=== PATIENT | female | born 1980 | race Caucasian/White ===

== ENCOUNTER 2022-06-23 14:56 | Emergency (ER) | payer SELFPAY ==
--- OUTSIDE RECORDS SUMMARY | 2022-06-23 14:59 | XMS REPORT | Continuity of Care Document ---
:1980 Author Organization [facility] t Address [address] [facility] [address] [place] [address] Care Team Providers Name Role Phone KISHAN RICHARDS Attending Clinician Unavailable DONI GREEN Attending Clinician Unavailable BLAYNE DAVIS Attending Clinician Unavailable LAB90 Attending Clinician Unavailable MD LEÓN Attending Clinician Unavailable Payers Payer Name Policy Type Policy Number Effective Date Expiration Date S berhane [employer]ET[employer] MP GOLD: 9 [id number] 2022 [facility] OFF 00:00:00 STANDARD [employer] 2 [id number] 2022 [employer] 00:00:00 Problems Condition Condition Condition Status Onset Resolution Last Treating Co mments Source Name Details Category Date Date Treatment Clinician Date Primary Primary Disease Active Jemma hypertensi hypertensi 2-01 Se ybold on on 00:00: - 00 Externa l DM type 2 DM type 2 Disease Active Antonio sey with with 2- Seybold diabetic diabetic 00:00: - mixed mixed 00 Externa hyperlipid hyperlipid l emia emia Other Other Disease Active Jemma specified specified 2-01 Seyb old hypothyroi hypothyroi 00:00: - dism dism 00 Externa l Menorrhagi Menorrhagi Disease Active K elsey a with a with 2-01 Seybold regular regular 00:00: - cycle cycle 00 Externa l Allergies, Adverse Reactions, Alerts This patient has no known allergies or adverse reactions. Social History Social Habit Start Date Stop Date Quantity Comments Source History SDOH Jemma Seybo ld - Alcohol Binge External History HEMA Cameron Seybo ld - Alcohol Frequency Externa l History SDOH Jemma Rodo ld - Alcohol Std Drinks Clinical Account Liaison al Alcohol intake 2022-06-03 2022-06-03 Current drinker Dilcia Shaver - 00:00:00 00:00:00 of alcohol External (finding) Alcohol Comment 2022-05-25 2022-05-25 social Jemma taylor - 00:00:00 00:00:00 External Sex Ass[birth year] At [birth year] Jemma Mcmahon ybashia - 00:00:00 00:00:00 External Smoking Status Start Date Stop Date Source Never smoked tobacco Jemma Rod old - External Medications Ordered Filled Start Stop Current Ordering Indication Dosage Frequency Signature Comments Components Source Medication Medication Date Date Medication? Clinician (SIG) Name Name Insulin NPH Yes [id number] 20U Inject 20 Jemma Isophane & 2-10 3 units into Sey bold Regular 13:51: the skin - (NOVOLIN 57 daily Externa 70/30 SC) l Levothyroxi Yes [id number] 125ug Take 1 Jemma ne Sodium 2-10 tablet Seybold 125 MCG 00:00: (125 mcg - oral Tablet 00 total) by Ext chris mouth l daily Nitrofurant Yes [id number] 100mg Take 1 Jemma oin Monohyd 2-10 capsule Seybo ld Macro 00:00: (100 mg - (Macrobid) 00 total) by Exte rna 100 MG oral mouth 2 l Capsule times daily Ondansetron Yes [id number] 4mg Q.[id number] Take 1 Jemma (ZOFRAN) 4 2-10 [id number] tablet (4 Seybold MG oral 00:00: 3D mg total) - TABLET 00 by mouth Externa DISPERSIBLE every 8 l hours as needed for nausea Vitamin D, Yes [id number] 07021S Take 1 Jemma Ergocalcife 2-10 capsule Seybo ld rol, 1.25 00:00: (50,000 - MG (58604 00 units Externa UT) oral total) by l Capsule mouth once a week hydroCHLORO Yes [id number] 12.5mg Take 1 Jemma thiazide 2-10 capsule Seybold 12.5 MG 00:00: (12.5 mg - oral 00 total) by Externa Capsule mouth l daily Insulin NPH 2022- Yes [id number] 20U Inject 20 Jemma Isophane & 2-01 3 units into Sey bold Regular 08:43: the skin - (NOVOLIN 00 daily Externa 70/30 SC) l Losartan 2022-0 Yes [id number] 25mg Take 1 Antonio sey Potassium 2-01 tablet (25 Seyb old 25 MG oral 00:00: mg total) - Tablet 00 by mouth Externa daily l Semaglutide 2022- Yes [id number] .25mg Inject Jemma (0.25 or 2-01 3 0.25 mg Seybold 0.5 00:00: into the - mg/dose) 2 00 skin once Exte rna mg/1.5 mL a week l SQ Solution Pen-Injecto r Norethin-Et 2022-0 Yes [id number] 1{tbl} Take 1 Jemma h Estrad-Fe 2-01 tablet by Sey bold Biphas (Lo 00:00: mouth - Loestrin 00 daily Externa Fe) 1 MG-10 l MCG / 10 MCG oral Tablet Metformin 2022-0 Yes [id number] 500mg Take 1 Jemma HCl 500 MG 2-01 3 tablet Seybold oral Tablet 00:00: (500 mg - 00 total) by Externa mouth l daily (with breakfast) Losartan 2022-0 Yes [id number] 25mg Take 1 Antonio sey Potassium 2-01 tablet (25 Seyb old 25 MG oral 00:00: mg total) - Tablet 00 by mouth Externa daily l Norethin-Et 2022-0 Yes [id number] 1{tbl} Take 1 Jemma h Estrad-Fe 2-01 tablet by SeSyapse bold Biphas (Lo 00:00: mouth - Loestrin 00 daily Externa Fe) 1 MG-10 l MCG / 10 MCG oral Tablet Metformin 2022-0 Yes [id number] 500mg Take 1 Jemma HCl 500 MG 2-01 3 tablet Seybold oral Tablet 00:00: (500 mg - 00 total) by Externa mouth l daily (with breakfast) Trulicity 2022-0 Yes [id number] .75mg Inject Jemma 0.75 2-01 3 0.75 mg Seybold MG/0.5ML 00:00: into the - subcutaneou 00 skin once Ext chris s Solution a week l Pen-injecto r Immunizations Ordered Immunization Filled Immunization Date Status Commen ts Source Name Name Influenza Virus 2021-11-22 Completed Jemma Se ybold Vaccine, age 6 00:00:00 - External months and up Influenza Virus 2021-11-22 Completed Jemma Se ybold Vaccine, age 6 00:00:00 - External months and up COVID-19 VACCINE 2021-04-07 Completed Jemma S eybold PFIZER 12+ ([place] 00:00:00 - Clinical Account Liaison al cap) Covid-19 Vaccine 2021-04-07 Completed Jemma S eybold (Pfizer), Mrna-lnp, 00:00:00 - Ext ernal Cosme Protein, Pf, 30mcg/0.3ml,IM COVID-19 VACCINE 2021-04-07 Completed Jemma S eybold PFIZER 12+ ([place] 00:00:00 - Clinical Account Liaison al cap) Covid-19 Vaccine 2021-04-07 Completed Jemma S eybold (Pfizer), Mrna-lnp, 00:00:00 - Ext ernal Cosme Protein, Pf, 30mcg/0.3ml,IM Influenza Virus 2021-01-22 Completed Jemma Se ybold Vaccine, No Preserv, 00:00:00 - Ex ternal age 6 months and up Influenza Virus 2021-01-22 Completed Jemma Se ybold Vaccine, No Preserv, 00:00:00 - Ex ternal age 6 months and up COVID-19 VACCINE 2020-07-31 Completed Jemma S eybold PFIZER 12+ ([place] 00:00:00 - Clinical Account Liaison al cap) Covid-19 Vaccine 2020-07-31 Completed Jemma S eybold (Pfizer), Mrna-lnp, 00:00:00 - Ext ernal Cosme Protein, Pf, 30mcg/0.3ml,IM COVID-19 VACCINE 2020-07-31 Completed Jemma S eybold PFIZER 12+ ([place] 00:00:00 - Clinical Account Liaison al cap) Covid-19 Vaccine 2020-07-31 Completed Jemma S eybold (Pfizer), Mrna-lnp, 00:00:00 - Ext ernal Cosme Protein, Pf, 30mcg/0.3ml,IM COVID-19 VACCINE 2020-07-09 Completed Jemma Madai pradodary PFIZER 12+ ([place] 00:00:00 - Clinical Account Liaison al cap) Covid-19 Vaccine 2020-07-09 Completed Jemma Madai pradobold (uMix[employer]TV), Mrna-lnp, 00:00:00 - Ext ernal Cosme Protein, Pf, 30mcg/0.3ml,IM COVID-19 VACCINE 2020-07-09 Completed Jemma Madai pradobold PFIZER 12+ ([place] 00:00:00 - Clinical Account Liaison al cap) Covid-19 Vaccine 2020-07-09 Completed Jemma Madai pradobold (uMix[employer]TV), Mrna-lnp, 00:00:00 - Ext ernal Cosme Protein, Pf, 30mcg/0.3ml,IM Tdap- (Boostrix, 2017-02-20 Completed Jemma berger Adacel) 00:00:00 - External Tdap- (Boostrix, 2017-02-20 Completed Jemma berger Adacel) 00:00:00 - External Vital Signs Vital Name Observation Time Observation Value Comments Source Systolic blood 2022-06-03 19:50:00 142 mm[Hg] Jemma Mcmahonybold - pressure External Diastolic blood 2022-06-03 19:50:00 70 mm[Hg] Dilcia ramirez Seybold - pressure External Heart rate 2022-06-03 19:50:00 105 /min Jemma S ab - External Body temperature 2022-06-03 19:50:00 36 Joselyn Dulce Maria ey Seybold - External Respiratory rate 2022-06-03 19:50:00 14 /min Dulce Maria ey Seybold - External Body height 2022-06-03 19:50:00 165.1 cm Jemma S ab - External Body weight 2022-06-03 19:50:00 80.74 kg Jemma Maadi ab - External BMI 2022-06-03 19:50:00 29.62 kg/m2 Jemmabrock pradodary - External Systolic blood 2022-05-25 13:51:00 128 mm[Hg] Jemma Mcmahonybold - pressure External Diastolic blood 2022-05-25 13:51:00 92 mm[Hg] Dilcia ramirez Seybold - pressure External Heart rate 2022-05-25 13:51:00 98 /min Jemma pradobowalt - External Body temperature 2022-05-25 13:51:00 35.56 Joselyn Dulce Maria Shaver - External Respiratory rate 2022-05-25 13:51:00 14 /min Dulce Maria Shaver - External Body height 2022-05-25 13:51:00 165.1 cm Jemma pradobowalt - External Body weight 2022-05-25 13:51:00 81.194 kg Jemma pradobowalt - External BMI 2022-05-25 13:51:00 29.79 kg/m2 Jemma pradobowalt - External Procedures This patient has no known procedures. Encounters Start End Encounter Admission Attending Care Care Encounter Source Date/Time Date/Time Type Type Clinicians Facility Department ID 2022-09-16 2022-09-16 Outpatient JEMMA RICHARDS [id number] Jemma 09:00:00 09:00:00 KISHAN Seybol d 2022-08-01 2022-08-01 Outpatient JEMMA GREEN [id number] Jemma 08:30:00 08:30:00 DONI Seybol d 2022-06-27 2022-06-27 Outpatient JEMMA RICHARDS [id number] Jemma 10:00:00 10:00:00 KISHAN Seybol d 2022-06-23 2022-06-23 Outpatient JEMMA RICHARDS [id number] Jemma 00:00:00 00:00:00 KISHAN Seybol d 2022-06-22 2022-06-22 Outpatient JEMMA RICHARDS [id number] Jemma 08:30:00 08:30:00 KISHAN Seybol d 2022-06-13 2022-06-13 Outpatient JEMMA DAVIS [id number] Jemma 00:00:00 00:00:00 BLAYNE Seybol d 2022-06-10 2022-06-10 Outpatient JEMMA RICHARDS [id number] Jemma 00:00:00 00:00:00 KISHAN Seybol d 2022-06-08 2022-06-08 Outpatient JEMMA RICHARDS [id number] Jemma 00:00:00 00:00:00 KISHAN Seybol d 2022-06-04 2022-06-04 Outpatient MAURICE JEMMA CAMERON [id number] Jemma 00:00:00 00:00:00 KISHAN Seybol d 2022-06-03 2022-06-03 Outpatient MAURICE JEMMA CAMERON [id number] Jemma 14:00:00 14:00:00 KISHAN Seybol d 2022-06-03 2022-06-03 Outpatient LUISL JEMMA CAMERON [id number] Jemma 00:00:00 00:00:00 KISHAN Seybol d 2022-05-26 2022-05-26 Outpatient PREZAS JEMMA CAMERON [id number] Jemma 00:00:00 00:00:00 BLAYNE Seybol d 2022-05-26 2022-05-26 Outpatient MAURICE JEMMA CAMERON [id number] Jemma 00:00:00 00:00:00 KISHAN Seybol d 2022-05-25 2022-05-25 Outpatient LAB90 JEMMA CAMERON [id number] Jemma 09:10:00 09:10:00 Seybol d 2022-05-25 2022-05-25 Outpatient MAURICE JEMMA CAMERON [id number] Jemma 08:00:00 08:00:00 KISHAN Seybol d 2022-05-25 2022-05-25 Outpatient MAURICE JMEMA CAMERON [id number] Jemma 00:00:00 00:00:00 KISHAN Seybol d 2022-05-23 2022-05-23 Outpatient MYKELSEYONL JEMMA CAMERON [id number] Jemma 00:00:00 00:00:00 MD TORO Seybol d 2018-11-03 2018-11-03 Emergency E [facility]FB [facility]FB [id number] MHFB 03:10:00 03:10:00 2018-10-24 2018-10-24 Emergency E [facility]FB [facility]FB [id number] [facility]FB 20:37:00 20:37:00 Results This patient has no known results.
[2022-06-23] MEDS ORDERED: KETOROLAC 30 MG/ML INJ ONE (15:42)
[2022-06-23] MEDS ORDERED: ONDANSETRON 4 MG/2 ML VIAL ONE (15:42)
[2022-06-23] MEDS ORDERED: NA CHLORIDE 0.9% 1,000 ML ONE (15:42)
[2022-06-23 15:54] LABS: Urine Blood 3+ (Negative); Urine Glucose Trace (Negative); Urine Protein 1+ (Negative); Urine Specific Gravity >=1.030 (1.005-1.030); Urine pH 5.5 (5.0-7.0)
[2022-06-23 16:02] LABS: Absolute Lymphocytes (CBC) 1.8 K/uL (0.7-4.9); Hematocrit 33.6 % (36.0-45.0); Lymphocytes % 26.7 % (15.3-44.8); MCV 64.6 fL (80-100); MPV 8.9 fL (7.6-11.3); RBC Red Blood Cell Count 5.21 M/uL (3.86-4.86)
[2022-06-23 16:03] LABS: Anisocytosis 3+; Blood Morphology Comment NOTED (NOT SEEN); Platelet Estimate INCR; White Blood Cell Scan OK (OK)
[2022-06-23 16:04] LABS: Hypochromasia 2+
[2022-06-23 16:12] LABS: Urine Specific Gravity/Preg >1.030 (1.005-1.030)
[2022-06-23 16:20] LABS: Albumin 3.7 g/dL (3.4-5.0); Bilirubin Total 0.3 mg/dL (0.2-1.0); Potassium 3.4 mmol/L (3.5-5.1); Protein, Total 8.3 g/dL (6.4-8.2)
--- NOTE | 2022-06-23 17:45 | RAD REPORT ---
EXAM DESCRIPTION: CT - Abdomen Pelvis W Contrast - 06/23/2022 5:21 pm CLINICAL HISTORY: ABD PAIN. Anemia. Vomiting. Constipation COMPARISON: CT ABD PELVIS W CONTRAST dated 01/17/2013 TECHNIQUE: Thin cut axial CT imaging of the abdomen and pelvis was performed following intravenous a dministration of 90 Isovue 300. Multiplanar reformats were generated and reviewed. All CT scans are performed using dose optimization technique as appropriate and may include automated exposure control or mA/KV adjustment according to patient size. FINDINGS: No suspicious findings in the lung bases. The liver, spleen, and pancreas show no suspicious findings. A small splenule is incidentally noted. Patient is status post cholecystectomy. No evidence of intra or extrahepatic biliary ductal dilation. Symmetric renal function is seen with no hydronephrosis or suspicious renal mass. No dilated bowel loops or bowel wall thickening. No free air, free fluid or inflammatory stranding. N o hernia, mass or bulky lymphadenopathy. The urinary bladder is without significant finding. Stable slightly bulky appearance of the uterus, could relate to underlying fibroids, not definitively discernible. No suspicious adnexal masses. No suspicious bony findings. IMPRESSION: No acute intra-abdominal process. Stable findings as above.
--- NOTE | 2022-06-23 18:07 | ER ---
Nurse's Notes [facility] Name: Evelyne Zafar Age: 41 yrs Sex: Female : 1980 Arrival Date: 06/23/2022 Time: 15:09 Bed 20 Private MD: Diagnosis: Nausea with vomiting, unspecified;Abdominal pain, Generalized Presentation: 06/23 15:14 Chief complaint: Patient states: I'm anemic, when I stand up I'm dizzy and my heart iw feels weird, is taking iron pills and I'm constipated X 2 weeks . throwing up X 1 week. Coronavirus screen: At this time, the client does not indicate any symptoms associated with coronavirus-19. Ebola Screen: Patient negative for fever greater than or equal to 101.5 degrees Fahrenheit, and additional compatible Ebola Virus Disease symptoms Patient denies exposure to infectious person. Patient denies travel to an Ebola-affected area in the 21 days before illness onset. No symptoms or risks identified at this time. Initial Sepsis Screen: Does the patient meet any 2 criteria? No. Patient's initial sepsis screen is negative. Does the patient have a suspected source of infection? No. Patient's initial sepsis screen is negative. Risk Assessment: Do you want to hurt yourself or someone else? Patient reports no desire to harm self or others. Onset of symptoms was June 13, 2022. 15:14 Method Of Arrival: Ambulatory iw 15:14 Acuity: SHERIF 3 iw Triage Assessment: 15:30 General: Appears in no apparent distress. uncomfortable, obese, Behavior is calm, bp cooperative, appropriate for age. Pain: Denies pain. EENT: No deficits noted. Neuro: Reports dizziness. Cardiovascular: No deficits noted. Respiratory: No deficits noted. GI: Reports diarrhea, vomiting. : No signs and/or symptoms were reported regarding the genitourinary system. Derm: No deficits noted. Musculoskeletal: No deficits noted. Historical: - Allergies: 15:21 No Known Allergies; aa5 - PMHx: 15:21 Diabetes mellitus; Anemia; Hypertensive disorder; thyroid problem; aa5 - PSHx: 15:21 Cholecystectomy; aa5 - Immunization history:: Adult Immunizations unknown. - Social history:: Smoking status: Patient denies any tobacco usage or history of. Screenin:30 [facility] ED Fall Risk Assessment (Adult) History of falling in the last 3 months, bp including since admission No falls in past 3 months (0 pts). Abuse screen: Denies threats or abuse. Denies injuries from another. Nutritional screening: No deficits noted. Tuberculosis screening: No symptoms or risk factors identified. Assessment: 15:30 General: SEE TRIAGE NOTE. bp 17:54 Reassessment: No changes from previously documented assessment. Patient and/or family bp updated on plan of care and expected duration. Pain level reassessed. Vital Signs: 15:14 BP 148 / 97; Pulse 96; Resp 16; Temp 98.4; Pulse Ox 100% on R/A; iw 15:22 Weight 75.3 kg (M); Height 5 ft. 5 in. (165.10 cm) (R); aa5 15:57 BP 132 / 78; Pulse 80; Resp 16; Pulse Ox 100% ; bp 17:53 BP 122 / 79; Pulse 71; Resp 16; Pulse Ox 98% ; bp 15:22 Body Mass Index 27.62 (75.30 kg, 165.10 cm) aa5 ED Course: 15:09 Patient arrived in ED. mr 15:14 SushilCaterina, Z[facility]KE [facility]. kb 15:14 Lamont Rose MD is Attending Physician. kb 15:15 Triage completed. iw 15:15 Arm band placed on. iw 15:30 Patient has correct armband on for positive identification. Bed in low position. Call bp light in reach. Side rails up X2. Adult w/ patient. 15:32 Keith Ortega, RN is Primary Nurse. bp 15:55 Inserted saline lock: 20 gauge in right forearm, using aseptic technique. Blood bp collected. 17:23 CT Abd/Pelvis - IV Contrast Only In Process Unspecified. EDMS Administered Medications: 15:55 Drug: NS 0.9% 1000 ml Route: IV; Rate: 1 bolus; Site: right forearm; bp 18:20 Follow up: IV Status: Completed infusion; IV Intake: 1000ml bp 15:55 Drug: TORadol - (ketorolac) 15 mg Route: IVP; Site: right forearm; bp 18:20 Follow up: Response: Pain is decreased bp 15:55 Drug: Zofran (Ondansetron) 4 mg Route: IVP; Site: right forearm; bp 18:20 Follow up: Response: No adverse reaction bp 18:19 Drug: Phenergan (promethazine) 12.5 mg Route: IM; Site: left deltoid; bp 18:20 Follow up: Response: No adverse reaction bp Intake: 18:20 IV: 1000ml; Total: 1000ml. bp Outcome: 18:06 Discharge ordered by . kb 18:42 Patient left the ED. iw Signatures: Dispatcher [employer] EDMS Caterina Ling, TOSHIA-[employer]ik[employer] SOFTWARE ARCHITECT-Kristen Owens Irene, RN RN iw Sindhu Mae, RN RN aa5 Keith Ortega, RN RN bp
--- NOTE | 2022-06-23 18:07 | EDPHYS ---
Physician Documentation [facility] Name: Evelyne Zafar Age: 41 yrs Sex: Female : 1980 Arrival Date: 06/23/2022 Time: 15:09 Bed 20 Private MD: ED Physician Lamont Rose HPI: 06/23 17:34 This 41 yrs old Female presents to ER via Ambulatory with complaints of Anemia, kb Vomiting, Constipation. 17:34 The patient presents with abdominal pain that is diffuse. The patient has not recently kb seen a physician. 17:34 Onset: The symptoms/episode began/occurred 1 week(s) ago. The symptoms do not radiate. kb Associated signs and symptoms: Pertinent positives: nausea and vomiting, constipation, Pertinent negatives: diarrhea, fever. The symptoms are described as constant. Modifying factors: The symptoms are alleviated by nothing, the symptoms are aggravated by nothing. Severity of pain: At its worst the pain was moderate in the emergency department the pain is unchanged. The patient has not experienced similar symptoms in the past. Historical: - Allergies: 15:21 No Known Allergies; aa5 - PMHx: 15:21 Diabetes mellitus; Anemia; Hypertensive disorder; thyroid problem; aa5 - PSHx: 15:21 Cholecystectomy; aa5 - Immunization history:: Adult Immunizations unknown. - Social history:: Smoking status: Patient denies any tobacco usage or history of. ROS: 17:33 Constitutional: Negative for fever, chills, and weight loss. kb 17:33 Abdomen/GI: Positive for abdominal pain, nausea and vomiting, constipation. 17:33 Neuro: Positive for dizziness. 17:33 All other systems are negative. Exam: 17:33 Constitutional: This is a well developed, well nourished patient who is awake, alert, kb and in no acute distress. Head/Face: Normocephalic, atraumatic. ENT: Moist Mucous membranes Cardiovascular: Regular rate and rhythm with a normal S1 and S2. No gallops, murmurs, or rubs. No pulse deficits. Respiratory: Respirations even and unlabored. No increased work of breathing. Talking in full sentences Skin: Warm, dry with normal turgor. Normal color. MS/ Extremity: Pulses equal, no cyanosis. Neurovascular intact. Full, normal range of motion. Neuro: Awake and alert, GCS 15, oriented to person, place, time, and situation. Moves all extremities. Normal gait. 17:33 Abdomen/GI: Inspection: abdomen appears normal, Bowel sounds: normal, Palpation: soft, in all quadrants, mild abdominal tenderness, in all quadrants. Vital Signs: 15:14 BP 148 / 97; Pulse 96; Resp 16; Temp 98.4; Pulse Ox 100% on R/A; iw 15:22 Weight 75.3 kg (M); Height 5 ft. 5 in. (165.10 cm) (R); aa5 15:57 BP 132 / 78; Pulse 80; Resp 16; Pulse Ox 100% ; bp 17:53 BP 122 / 79; Pulse 71; Resp 16; Pulse Ox 98% ; bp 15:22 Body Mass Index 27.62 (75.30 kg, 165.10 cm) aa5 MDM: 15:14 Patient medically screened. kb 17:33 Data reviewed: vital signs, nurses notes. kb 17:35 Differential diagnosis: bowel obstruction, gastritis, non-specific abd pain. ED course: Patient reports she was diagnosed with anemia and started on iron supplements 3 weeks ago. Reports constipation for 2 weeks, vomiting for 1 week with abdominal pain. States she called her doctor and was told that she sounded dehydrated so she came to the ER for evaluation. On exam patient has mild diffuse abdominal tenderness. Nontoxic in appearance. Serum labs and CT scan ordered.. 18:06 Counseling: I had a detailed discussion with the patient and/or guardian regarding: the kb historical points, exam findings, and any diagnostic results supporting the discharge/admit diagnosis, lab results, radiology results, the need for outpatient follow up, a family practitioner, to return to the emergency department if symptoms worsen or persist or if there are any questions or concerns that arise at home. 18:06 ED course: Patient feeling better after treatment. Nontoxic in appearance. Tolerating kb p.o. intake. Ready to go home. In agreement with outpatient follow-up. Has appointment with PCP on Monday.. 06/23 15:19 Order name: CBC with Diff; Complete Time: 16:05 kb 06/23 15:19 Order name: CMP; Complete Time: 16:20 kb 06/23 15:19 Order name: Lipase; Complete Time: 16:20 kb 06/23 15:19 Order name: CT Abd/Pelvis - IV Contrast Only; Complete Time: 17:52 kb 06/23 15:19 Order name: IV Saline Lock; Complete Time: 15:55 kb 06/23 15:19 Order name: Labs collected and sent; Complete Time: 15:55 kb 06/23 15:19 Order name: Urine Dipstick-Ancillary (obtain specimen); Complete Time: 15:55 kb 06/23 15:54 Order name: Urine Dipstick-Ancillary; Complete Time: 15:57 EDMS 06/23 15:58 Order name: Urine --Ancillary (enter results); Complete Time: 16:14 kj1 06/23 16:04 Order name: CBC Smear Scan; Complete Time: 16:05 EDMS Administered Medications: 15:55 Drug: NS 0.9% 1000 ml Route: IV; Rate: 1 bolus; Site: right forearm; bp 18:20 Follow up: IV Status: Completed infusion; IV Intake: 1000ml bp 15:55 Drug: TORadol - (ketorolac) 15 mg Route: IVP; Site: right forearm; bp 18:20 Follow up: Response: Pain is decreased bp 15:55 Drug: Zofran (Ondansetron) 4 mg Route: IVP; Site: right forearm; bp 18:20 Follow up: Response: No adverse reaction bp 18:19 Drug: Phenergan (promethazine) 12.5 mg Route: IM; Site: left deltoid; bp 18:20 Follow up: Response: No adverse reaction bp Disposition: 19:26 Co-signature as Attending Physician, Lamont Rose MD I reviewed the patient's care rn provided by the Advanced Practice Provider and agree with the diagnosis and treatment plan. Disposition Summary: 06/23/22 18:06 Discharge Ordered Location: Home kb Condition: Stable kb Diagnosis - Nausea with vomiting, unspecified kb - Abdominal pain, Generalized kb Followup: kb - With: Emergency Department - When: As needed - Reason: Worsening of condition Followup: kb - With: Private Physician - When: 2 - 3 days - Reason: Recheck today's complaints, Continuance of care, Re-evaluation by your physician Discharge Instructions: - Discharge Summary Sheet kb - Nausea and Vomiting, Adult, [id number] kb - Abdominal Pain, Adult, [id number] kb Forms: - Medication Reconciliation Form kb - Thank You Letter kb - Antibiotic Education kb - Prescription Opioid Use kb Signatures: Dispatcher [employer] Caterina Monterroso, TEST SPECIALIST-C TEST SPECIALIST-Ckb Lamont Rose MD MD rn Sindhu Mae, RN RN aa5 Keith Ortega RN RN bp
[2022-06-23] MEDS ORDERED: PROMETHAZINE INJ 25 MG/ML AMP ONE (18:17)
[2022-06-23 19:20] VITALS: TEMP 98.4
[2022-06-23 19:32] VITALS: BP 122/79; O2SAT 98
== END 2022-06-23 18:42 | disposition home or self-care (01) ==
LOC: ER 14:56
DX: R11.2 Nausea with vomiting, unspecified (principal); R10.84 Generalized abdominal pain
CPT/HCPCS: 36415; 74177; 80053; 81003; 81025; 83690; 85025; 96361; 96372; 96374; 96375; 99284; J2405; J2550; J7030; Q9967

== ENCOUNTER 2024-01-29 10:07 | Day surgery (SDC) | payer OTHER, SELFPAY ==
[2024-01-25 08:42] LABS: Anion Gap 7.8 mEq/L (5.0-15.0); Potassium 3.8 mEq/L (3.5-5.1)
--- NOTE | 2024-01-26 16:38 | EKG ---
Test Date: 2024-01-25 Test Time: 08:12:00 [employer]: [facility] MEASUREMENT RESULTS: Intervals: Rate: 72 W[place]: 138 QRSD: 92 QT: 394 QTc: 431 [place]: P: 77 W[place]: 138 QRS: -40 T: 41 INTERPRETIVE STATEMENTS: Normal sinus rhythm Left axis deviation Abnormal ECG No previous ECG available for comparison Electronically Signed On 01-26-24 16:33:08 CDT by Nasir Waller
[2024-01-29] MEDS: NA CHLORIDE 0.9% 1,000 ML ONE (10:20)
[2024-01-29] MEDS ORDERED: LIDOCAINE 1% MPF 5 ML VIAL ONE (11:04)
[2024-01-29] MEDS ORDERED: propofoL 200 MG/20 ML VIAL IV ONE (11:04)
[2024-01-29 13:24] VITALS: BP 119/72; O2SAT 98
== END 2024-01-29 13:09 | disposition home or self-care (01) ==
LOC: OR 10:07
PROVIDERS: ATTEND Surgery
PROC: 0DBL8ZX Excision of Transverse Colon, Via Natural or Artificial Opening Endoscopic, Diagnostic (ICD-10-PCS; principal; 2024-01-29 12:00)
DX: Z12.11 Encounter for screening for malignant neoplasm of colon (principal); K64.8 Other hemorrhoids; I10 Essential (primary) hypertension; E11.9 Type 2 diabetes mellitus without complications; E78.00 Pure hypercholesterolemia, unspecified; D12.3 Benign neoplasm of transverse colon
CPT/HCPCS: 45385; 93005; 80048; 36415; 82947 ×2; 88305; J2704; J2001; J7030

== ENCOUNTER 2024-09-15 10:43 | Emergency (ER) | payer OTHER ==
--- OUTSIDE RECORDS SUMMARY | 2024-09-15 10:51 | XMS REPORT | Continuity of Care Document ---
Author Name Unknown Address [address] [facility] [place] [address] [facility] Address [address] 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 Name Role Phone Kishan Richards Primary Care Physician [phone] MARK KIM Attending Clinician Unavailab KISHAN Mack Attending Clinician Unavailable MAURY JAMES Attending Clinician Unavaila ble LAB90 Attending Clinician Unavailable KOSTA CUNNINGHAM Attending Clinician Unavailable MAURY JAMES Attending Clinician Unavailabl e Doctor Unassigned, [place] Attending Clinician U PALOMO Dodson Attending Clinician Unavaila ble TOMOGRAPHY, [facility] Attending Cl inician Unavailable JUDY GREEN Attending Clinician Un available Judy Green Attending Clinician Angela TRAORE MD Attending Clinician Unavailab le Doctor Unassigned, [place] Attending Clinician U STEVENSON Hernandez Attending Clinician Unavailable Heather Mcmullen Attending Clinician [phone] Amadou Gross DO Attending Clinician [phone] Stevenson Gaviria MD Attending Clinician [phone] Neelima Mcfarlane Attending Clinician [phone] NEELIMA PERDOMO Attending Clinician Unavailable TIMOTHY ESPINOSA Attending Clinician Unavailable MONICA CRESPO Attending Clinician Unavailable Raulito Mello Attending Clinician [phone]- [phone] RAULITO MEDINA Attending Clinician Unavaila KISHAN Montgomery Admitting Clinician Unavailable STEVENSON GAVIRIA Admitting Clinician Unavailable Stevenson Gaviria MD Admitting Clinician [phone] Payers Payer Name Policy Type Policy Number Effective Date Expirati on Date Source GOLD Terry 9 [id number] 2024 00:00:00 BCBS 2 [id number] 2024 00:00:00 [employer] [facility] [id number] 2022 00:00:00 [facility] BCBS BLUE ADVANTAGE O [id number] 2021 00:00:00 Problems Condition Name Condition Details Condition Category Status Onset Date Resolution Date Last Treatment Date Treating Clinician Comments Source Preop examinatio n Preop examinatio n Disease Active 12-19 00:00: 00 Jemma mejia Anaphylaxi s, initial encounter Anaphylaxi s, initial encounter Disease Active 5 00:00: 00 [facility] Iron deficiency anemia Iron deficiency anemia Disease Active 4-30 00:00: 00 Jemma mejia Uterine leiomyoma Uterine leiomyoma Disease Active 3-06 00:00: 00 Jemma Seybold - Externa l Primary hypertensi on Primary hypertensi on Disease Active 2- 00:00: 00 Jemma Seybold - Externa l DM type 2 with diabetic mixed hyperlipid emia (multi HCC) DM type 2 with diabetic mixed hyperlipid emia (multi HCC) Disease Active 2- 00:00: 00 Jemma Seybold - Externa l Other specified hypothyroi dism Other specified hypothyroi dism Disease Active 2 00:00: 00 Jemma Seybold - Externa l Menorrhagi a with regular cycle Menorrhagi a with regular cycle Disease Active 05-25 00:00: 00 Jemma Seybold - Externa l Acute midline low back pain without sciatica Acute midline low back pain without sciatica Disease Active 1-14 00:00: 00 [facility] Contracept rafita management Contracept rafita management Disease Active 2016-04 00:00: 00 [facility] Obesity (BMI 30.0-34.9) Obesity (BMI 30.0-34.9) Disease Active 2016-04 00:00: 00 [facility] Essential hypertensi on, benign Essential hypertensi on, benign Disease Active 2016-04 00:00: 00 [facility] Hypothyroi d Hypothyroi d Disease Active 2016-04 00:00: 00 [facility] Diabetes mellitus type 1, uncomplica telma Diabetes mellitus type 1, uncomplica telma Disease Active 2016-04 00:00: 00 [facility] Menorrhagi a Menorrhagi a Disease Active 2016-04 00:00: 00 [facility] BV (bacterial vaginosis) BV (bacterial vaginosis) Disease Active 2016-04 00:00: 00 [facility] Vaginal yeast infection Vaginal yeast infection Disease Active 2016-04 00:00: 00 [facility] Diabetes mellitus type 1, uncomplica telma Diabetes mellitus type 1, uncomplica telma Disease Active 2016-04 00:00: 00 [facility] Threatened premature labor, antepartum (644.03) Threatened premature labor, antepartum (644.03) Disease Resolve d 2005- 8- 00:00: 00 2017-02-20 00:00:00 2017-02-20 12:04:37 [facility] Allergies, Adverse Reactions, Alerts Allergy Name Allergy Type Status Severity Reaction(s) Onset Date Inactive Date Treating Clinician Comments Source Medroxyp rogester one Acetate Propensi ty to adverse reaction s Active Anaphylaxis 2023-04 0 00:00: 00 Jemma Shaver - Adriaa l Kdc:Lucas ow Dye+Medr oxyproge sterone Propensi ty to adverse reaction s Active 12-30 00:00: 00 Other Reaction( s): UNKNOWN Jemma Shaver - Adriaa jackie medroxyp rogester one DA Active SV UNKNOWN 12-30 00:00: 00 [facility] Medroxyp rogester one Acetate Drug Allergy Active Anaphylaxis 09-16 00:00: 00 Facial/th roat swelling Jemma [place] jackie MEDROXYP ROGESTER ONE ACETATE DRUG INGREDI Active SOB 09-16 00:00: 00 [facility] Medroxyp rogester one Acetate Propensi ty to adverse reaction s Active Shortness of Breath 09-16 00:00: 00 ?Anaphalx ysis [facility] NO KNOWN ALLERGIE S Drug Class Active [facility] Social History Social Habit Start Date Stop Date Quantity Comments Source Gender identity [facility] Sexual orientation U [facility] History SDOH Alcohol Binge Jemma Shaver - External ASSERTION Not Jemma Shaver - External History of Occupation eJmma Shaver - External History SDOH Alcohol Frequency Jemma foote - External History SDOH Alcohol Std Drinks Jemma taylor - External Sex 2024-07-05 07:05:30 2024-07-05 07:05:30 Female (finding) Jemma Shaver - External Alcohol intake 2023-06-07 00:00:00 2023-06-07 00:00:00 Current drinker of alcohol (finding) Jemma Lund External Alcohol Comment 2022-12-19 00:00:00 2022-12-19 00:00:00 rarely Jemma Shaver - External Tobacco use and exposure 2022-12-19 00:00:00 2022-12-19 00:00:00 Smokeless tobacco non-user Jemma Shaver - External Education 2022-12-19 00:00:00 2022-12-19 00:00:00 9 Jemma Lund External Exposure to SARS-CoV-2 (event) 2022-09-06 00:00:00 2022-09-16 15:04:00 Not sure [facility] Alcoholic beverage intake 2022-09-16 00:00:00 2022-09-16 00:00:00 Current drinker of alcohol (finding) [facility] History of Social function 2021-06-24 00:00:00 2021-06-24 00:00:00 [facility] History of tobacco use 1998-02-20 00:00:00 2011-09-21 00:00:00 Cigarette Smoker [facility] Sex assigned at 1980 00:00:00 1980 00:00:00 F Jemma Peters Smoking Status Start Date Stop Date Source Never smoked tobacco Jemma Peters Ex-smoker 2022-09-16 00:00:00 2022-09-16 00:00:00 U [facility] Medications Ordered Medication Name Filled Medication Name Start Date Stop Date Current Medication? Ordering Clinician Indication Dosage Frequency Signature (SIG) Comments Components Source Phentermine HCl 8 MG oral Tablet - 00:00: 00 Yes [id number] 3 1{tbl} QD Take 1 tablet by mouth daily. Jemma Michel l Jardiance 10 MG oral Tablet - 00:00: 00 Yes 10mg QD Take 1 tablet (10 mg total) by mouth daily. Jemma mejia Empaglifloz in (Jardiance) 10 MG oral Tablet 3- 00:00: 00 Yes [id number] 3 10mg QD Take 1 tablet (10 mg total) by mouth daily. Jemma mejia Topiramate 25 MG oral Tablet 3-21 00:00: 00 Yes [id number] 25mg Q.5D Take 1 tablet (25 mg total) by mouth 2 times daily. Jemma mejia Tirzepatide (Mounjaro) 15 MG/0.5ML subcutaneou s Solution Auto-inject or 2-14 00:00: 00 Yes [id number] 3 15mg Q1W Inject 15 mg into the skin once a week. Jemma mejia hydroCHLORO thiazide 12.5 MG oral Capsule 2023-04 2-02 00:00: 00 Yes [id number] 12.5mg QD Take 1 capsule by mouth once daily Jemma mejia Phentermine HCl 8 MG oral Tablet 9- 00:00: 00 Yes [id number] 3 1{tbl} QD Take 1 tablet by mouth daily. Jemma mejia Losartan Potassium 25 MG oral Tablet 9-17 00:00: 00 Yes [id number] 50mg QD Take 2 tablets (50 mg total) by mouth daily. Jemma mejia Levothyroxi ne Sodium 137 MCG oral Tablet 9- 00:00: 00 Yes [id number] 137ug QD Take 1 tablet (137 mcg total) by mouth daily. Jemma mejia hydroCHLORO thiazide 12.5 MG oral Capsule 9- 00:00: 00 Yes [id number] 12.5mg QD Take 1 capsule (12.5 mg total) by mouth daily. Jemma mejia Tirzepatide (Mounjaro) 15 MG/0.5ML subcutaneou s Solution Pen-injecto r 7-09 00:00: 00 Yes [id number] 3 15mg Q1W Inject 0.5 mL (15 mg total) into the skin once a week. Jemma mejia Tirzepatide (Mounjaro) 15 MG/0.5ML subcutaneou s Solution Pen-injecto r 7-09 00:00: 00 07-12 00:00 :00 No [id number] 3 15mg Q1W Inject 0.5 mL (15 mg total) into the skin once a week. Jemma mejia Tirzepatide (Mounjaro) 12.5 MG/0.5ML subcutaneou s Solution Pen-injecto r 5-31 00:00: 00 01-08 00:00 :00 No [id number] 3 12.5mg Q1W Inject 0.5 mL (12.5 mg total) into the skin once a week. Jemma mejia hydroCHLORO thiazide 12.5 MG oral Capsule 3-04 00:00: 00 Yes [id number] 12.5mg Take 1 capsule (12.5 mg total) by mouth daily. Jemma mejia Levothyroxi ne Sodium 125 MCG oral Tablet 3-04 00:00: 00 Yes [id number] 125ug Take 1 tablet (125 mcg total) by mouth daily. Jemma mejia Tirzepatide (Mounjaro) 12.5 MG/0.5ML subcutaneou s Solution Pen-injecto r 2-14 00:00: 00 Yes [id number] 3 12.5mg Inject 0.5 mL (12.5 mg total) into the skin once a week. Jemma mejia Losartan Potassium 25 MG oral Tablet 2-14 00:00: 00 01-08 00:00 :00 No [id number] 25mg QD Take 1 tablet (25 mg total) by mouth daily. Jemma mejia Tirzepatide (Mounjaro) 10 MG/0.5ML subcutaneou s Solution Pen-injecto r 2-08 00:00: 00 06-07 00:00 :00 No [id number] 3 10mg Inject 0.5 mL (10 mg total) into the skin once a week. Jemma mejia Losartan Potassium 25 MG oral Tablet 2022-04 2-12 00:00: 00 06-07 00:00 :00 No [id number] 25mg Take 1 tablet (25 mg total) by mouth daily. Jemma mejia Levothyroxi ne Sodium 125 MCG oral Tablet 2022-04 2-08 00:00: 00 Yes [id number] 125ug Take 1 tablet (125 mcg total) by mouth daily. Jemma mejia hydroCHLORO thiazide 12.5 MG oral Capsule 2022-04 2-04 00:00: 00 Yes [id number] 12.5mg Take 1 capsule (12.5 mg total) by mouth daily. Jemma mejia Ibuprofen (MOTRIN) 800 MG oral Tablet 2022-04 1-06 00:00: 00 06-07 00:00 :00 No [id number] 800mg Take 1 tablet (800 mg total) by mouth every 8 hours. Jemma mejia Ibuprofen (MOTRIN) 800 MG oral Tablet 2022-04 0 00:00: 00 Yes [id number] 800mg Take 1 tablet (800 mg total) by mouth every 8 hours. Jemma mejia Estradiol 0.05 MG/24HR transdermal PATCH BIWEEKLY 01-05 00:00: 00 06-07 00:00 :00 No [id number] 4104 1{patch } Place 1 patch onto the skin twice a week. Jemma mejia Celecoxib (CeleBREX) 100 MG oral Capsule 01-03 00:00: 00 06-07 00:00 :00 No celecoxib 100 MG Oral Capsule [CeleBREX] Quantity: 1 Celine Bales MD Start: 3 Jemma mejia Dulaglutide (Trulicity) 0.75 MG/0.5ML subcutaneou s Solution Pen-injecto r 12-30 00:00: 00 Yes .75mg Inject 0.75 mg into the skin. Jemma mejia Norethindro ne, Contracepti ve, 0.35 MG oral Tablet 12-30 00:00: 00 06-07 00:00 :00 No 1{tbl} Take 1 tablet (0.35 mg total) by mouth daily. Jemma mejia Ibuprofen (MOTRIN) 800 MG oral Tablet 12-28 00:00: 00 Yes [id number] 800mg Take 1 tablet (800 mg total) by mouth every 8 hours. Jemma mejia HYDROcodone -Acetaminop hen (Acosta) 5-325 MG oral Tablet 12-28 00:00: 00 02-08 00:00 :00 No [id number] 1{tbl} Q.25D Take 1 tablet by mouth every 6 hours as needed for pain. Jemma mejia hydroCHLORO thiazide 12.5 MG oral Capsule 12-27 00:00: 00 Yes [id number] Take 1 capsule by mouth once daily Jemma mejia Ferrous Sulfate 325 (65 Fe) MG oral Tablet 12-19 00:00: 00 Yes [id number] 325mg Take 1 tablet (325 mg total) by mouth every 7 days. Jemma mejia Cholecalcif adrianne (Vitamin D) 50 MCG (2000 UT) oral Capsule 12-19 00:00: 00 01-18 00:00 :00 No [id number] 2000U Take 1 capsule (2,000 units total) by mouth daily. Jemma mejia Dulaglutide (Trulicity) 4.5 MG/0.5ML subcutaneou s Solution Pen-injecto r 10-24 00:00: 00 Yes [id number] 3 4.5mg Inject 4.5 mg into the skin once a week Jemma mejia Vitamin D, Ergocalcife rol, 1.25 MG (60634 UT) oral Capsule 10-04 00:00: 00 12-19 00:00 :00 No [id number] Take 1 capsule by mouth once a week Jemma mejia Constulose 10 GM/15ML oral Solution 10-04 00:00: 00 12-19 00:00 :00 No [id number] TAKE 30 ML BY MOUTH 3 TIMES DAILY NEEDED FOR CONSTIPATI ON Jemma mejia hydroCHLORO thiazide 12.5 MG oral Capsule 10-03 00:00: 00 Yes [id number] Take 1 capsule by mouth once daily Jemma Chhaya mejia Levothyroxi ne Sodium 125 MCG oral Tablet 10-03 00:00: 00 Yes [id number] Take 1 tablet by mouth once daily Jemma mejia Losartan Potassium 25 MG oral Tablet 10-03 00:00: 00 Yes [id number] Take 1 tablet by mouth once daily Jemma mejia Ondansetron (ZOFRAN) 4 MG oral TABLET DISPERSIBLE 09-23 00:00: 00 06-07 00:00 :00 No [id number] 4mg Q.[id number] 3D Take 1 tablet (4 mg total) by mouth every 8 hours as needed for nausea Jemma mejia atorvastati n (LIPITOR) tablet 20 mg 09-18 02:00: 00 Yes 20mg 20 mg, Oral, QHS, First dose on 09/17/22 at 2100, Until Discontinu ed, Routine [facility] predniSONE 20 mg tablet 09-18 00:00: 00 09-21 04:59 :00 No [id number] 20mg Take 1 tablet by mouth in the morning for 2 days. [facility] iron sucrose (VENOFER) 200 mg in NaCl 0.9% (NS) 100 mL infusion 09-17 17:15: 00 09-17 18:29 :28 No 200mg 200 mg, IV Infusion, ONCE, Administer over 1.5 Hours, On 09/17/22 at 1215, For 1 dose [facility] ondansetron (ZOFRAN (PF)) injection 4 mg 09-17 14:26: 35 Yes 4mg 4 mg, Slow IV Push, Q6HPRN, Nausea and Vomiting (N/V), Starting on 09/17/22 at 0926
Do ses of ondansetro n 16 mg and above need to be administer ed via IV piggyback. For Dose >=24mg ECG monitoring is advisable.
[facility] predniSONE (DELTASONE) tablet 20 mg 09-17 14:00: 00 Yes 20mg 20 mg, Oral, DAILY, First dose on 09/17/22 at 0900, Until Discontinu ed, Routine [facility] enoxaparin (LOVENOX) injection 40 mg 09-17 14:00: 00 Yes 40mg 40 mg, Subcutaneo us, DAILY, First dose on 09/17/22 at 0900, Until Discontinu ed, Routine [facility] insulin NPH hum/reg insulin hm (NOVOLIN 70/30 SC) 09-17 13:33: 54 Yes inject under the skin. [facility] ferrous sulfate 325 mg (65 mg iron) tablet 09-17 13:33: 54 Yes 325mg Take 1 tablet by mouth weekly. [facility] hydroCHLORO thiazide 12.5 mg capsule 09-17 13:33: 54 Yes 12.5mg Take 1 capsule by mouth in the morning. [facility] metFORMIN 500 mg tablet 09-17 13:33: 54 Yes 500mg Take 1 tablet by mouth in the morning and 1 tablet in the evening. Take with meals. [facility] medroxyprog esterone ac, micro (MEDROXYPRO GEST, AC MICRO,BULK, MISC) 09-17 13:33: 53 09-17 00:00 :00 No 10mg 10 mg. Patient had reaction-d oes not take [facility] norethindro ne 0.35 mg tablet 09-17 13:33: 53 09-17 00:00 :00 No .35mg Take 1 tablet by mouth in the morning. [facility] metFORMIN (GLUCOPHAGE ) tablet 500 mg 09-17 13:00: 00 Yes 500mg 500 mg, Oral, BID MEALS, First dose on 09/17/22 at 0800, Until Discontinu ed, Routine [facility] levothyroxi ne (SYNTHROID) tablet 125 mcg 09-17 11:00: 00 Yes 125ug 125 mcg, Oral, QAM-0600, First dose on 09/17/22 at 0600, Until Discontinu ed, Routine [facility] diphenhydrA MINE (BENADRYL) injection 25 mg 09-17 10:15: 00 09-17 09:26 :00 No 25mg 25 mg, Slow IV Push, ONCE, 1 dose, On Mon09/17/22 at 0515, SIN [facility] NaCl 0.9% (NS) IV infusion 1,000 mL 09-17 04:45: 00 Yes 1000mL at 50 mL/hr, IV Infusion, CONTINUOUS , Starting on Mon09/16/22 at 2345, Until Discontinu ed, Routine [facility] Sliding Scale Insulin - Lispro (HumaLOG) 09-17 04:00: 00 Yes Subcutaneo us, TID MEALS, First dose on Mon09/16/22 at 2300, Until Discontinu ed, Routine [facility] famotidine (PEPCID AC) tablet 20 mg 09-17 04:00: 00 Yes 20mg 20 mg, Oral, BID, First dose on Mon09/16/22 at 2300, Until Discontinu ed, Routine [facility] cetirizine (ZYRTEC) tablet 10 mg 09-17 04:00: 00 Yes 10mg 10 mg, Oral, DAILY, First dose on Mon09/16/22 at 2300, Until Discontinu ed, Routine [facility] ibuprofen (IBU) tablet 600 mg 09-17 03:47: 21 Yes 600mg 600 mg, Oral, Q6HPRN, Starting on Mon09/16/22 at 2247, Until Discontinu ed, Routine, Pain (scale 1-3) [facility] losartan 25 mg tablet 09-17 00:00: 00 Yes [id number] 25mg Take 1 tablet by mouth in the morning. [facility] levothyroxi ne (EUTHYROX) 125 mcg tablet 09-17 00:00: 00 Yes [id number] 125ug Take 1 tablet by mouth every morning. [facility] ondansetron (ZOFRAN (PF)) injection 4 mg 09-16 21:52: 00 09-16 21:57 :00 No 4mg 4 mg, Slow IV Push, ONCE, 1 dose, [facility]:1,000 (1 mg/mL) (ADRENALIN) injection 0.3 mg 09-16 19:45: 00 09-16 19:45 :00 No .3mg 0.3 mg, Subcutaneo us, ONCE, 1 dose, On Mon09/16/22 at 1445, STAT [facility] ondansetron (ZOFRAN (PF)) injection 4 mg 09-16 19:45: 00 09-16 19:51 :00 No 4mg 4 mg, Slow IV Push, ONCE, 1 dose, [facility]09/16/22 at 1445[facility] diphen[facility]INE (BENADRYL) injection 25 mg 09-16 19:00: 00 09-16 19:01 :00 No 25mg 25 mg, Slow IV Push, ONCE, 1 dose, On Mon09/16/22 at 1400, STAT [facility] maalox:diph enhydrAMINE :lidocaine 2 % viscous 1:1:1 (FIRST-MOUT HWASH BLM) oral suspension 15 mL 09-16 17:30: 00 09-16 17:37 :00 No 15mL 15 mL, Oral, ONCE, 1 dose, On Mon09/16/22 at 1230, Routine [facility] NaCl 0.9% (NS) bolus infusion 500 mL 09-16 17:30: 00 09-16 21:34 :00 No 500mL at 999 mL/hr, 500 mL, IV Infusion, ONCE, 1 dose, On Mon09/16/22 at 1230, STAT [facility] famotidine (PEPCID (PF)) injection 20 mg 09-16 17:30: 00 09-16 17:30 :00 No 20mg 20 mg, Slow IV Push, ONCE, 1 dose, On Mon09/16/22 at 1230, SIN [facility] diphenhydrA MINE (BENADRYL) injection 25 mg 09-16 17:30: 00 09-16 17:31 :00 No 25mg 25 mg, Slow IV Push, ONCE, 1 dose, On Mon09/16/22 at 1230, STAT [facility] dexamethaso ne sod phos PF injection 10 mg 09-16 17:30: 00 09-16 17:30 :00 No 10mg 10 mg, Slow IV Push, ONCE, 1 dose, On Mon09/16/22 at 1230, 1 mL [facility] medroxyPROG ESTERone Acetate 10 MG oral Tablet 09-15 00:00: 00 09-23 04:59 :00 No [id number] 10mg Take 1 tablet (10 mg total) by mouth every 8 hours for 7 days Jemma mejia Dulaglutide (Trulicity) 4.5 MG/0.5ML subcutaneou s Solution Pen-injecto r 09-13 00:00: 00 Yes [id number] 3 4.5mg Inject 4.5 mg into the skin once a week Jemma mejia Vitamin D, Ergocalcife rol, 1.25 MG (89147 UT) oral Capsule 09-12 00:00: 00 Yes [id number] Take 1 capsule by mouth once a week Jemma mejia Dulaglutide (Trulicity) 4.5 MG/0.5ML subcutaneou s Solution Pen-injecto r 08-17 00:00: 00 Yes [id number] 3 4.5mg Inject 4.5 mg into the skin once a week Jemma mejia Norethindro ne, Contracepti ve, 0.35 MG oral Tablet 08-01 00:00: 00 01-18 00:00 :00 No [id number] .35mg Take 1 tablet (0.35 mg total) by mouth daily Take one tablet daily at the same time every day for efficacy. Jemma mejia Trulicity 3 MG/0.5ML subcutaneou s Solution Pen-injecto r 3- 00:00: 00 Yes [id number] 3 3mg Inject 3 mg into the skin once a week Jemma mejia Nitrofurant oin Monohyd Macro (Macrobid) 100 MG oral Capsule 07-01 00:00: 00 08-01 00:00 :00 No [id number] 100mg Take 1 capsule (100 mg total) by mouth 2 times daily Jemma mejia Insulin NPH Isophane & Regular (NOVOLIN 70/30 SC) 06-27 05:52: 01 06-27 00:00 :00 No [id number] 3 20U Inject 20 units into the skin daily Jemma mejia Trulicity 1.5 MG/0.5ML subcutaneou s Solution Pen-injecto r 06-27 00:00: 00 Yes [id number] 3 1.5mg Inject 1.5 mg into the skin once a week Jemma mejia Lactulose 10 GM/15ML oral Solution 06-27 00:00: 00 Yes [id number] 20g Q.[id number] 3D Take 30 mL (20 g total) by mouth 3 times daily as needed (constipat ion) Jemma mejia hydroCHLORO thiazide 12.5 MG oral Capsule 06-13 00:00: 00 Yes [id number] 12.5mg Take 1 capsule (12.5 mg total) by mouth daily Jemma mejia Levothyroxi ne Sodium 125 MCG oral Tablet 06-13 00:00: 00 Yes [id number] 125ug Take 1 tablet (125 mcg total) by mouth daily Jemma mejia Losartan Potassium 25 MG oral Tablet 06-13 00:00: 00 Yes [id number] 25mg Take 1 tablet (25 mg total) by mouth daily Jemma mejia Ondansetron (ZOFRAN) 4 MG oral TABLET DISPERSIBLE 06-13 00:00: 00 Yes [id number] 4mg Q.[id number] 3D Take 1 tablet (4 mg total) by mouth every 8 hours as needed for nausea Jemma mejia Metformin HCl 500 MG oral Tablet 06-13 00:00: 00 07-12 00:00 :00 No [id number] 3 500mg Take 1 tablet (500 mg total) by mouth in the morning and 1 tablet (500 mg total) in the evening. Take with meals. Jemma mejia Dulaglutide (Trulicity) 0.75 MG/0.5ML subcutaneou s Solution Pen-injecto r 06-13 00:00: 00 06-27 00:00 :00 No [id number] 3 .75mg Inject 0.75 mg into the skin once a week Jemma mejia Ferrous Sulfate 325 (65 Fe) MG oral Tablet 06-06 00:00: 00 12-19 00:00 :00 No [id number] 325mg Take 1 tablet (325 mg total) by mouth daily (with breakfast) Jemma mejia Insulin NPH Isophane & Regular (NOVOLIN 70/30 SC) 06-03 13:51: 57 Yes [id number] 3 20U Inject 20 units into the skin daily Jemma meija Nitrofurant oin Monohyd Macro (Macrobid) 100 MG oral Capsule 06-03 00:00: 00 Yes [id number] 100mg Take 1 capsule (100 mg total) by mouth 2 times daily Jemma mejia Vitamin D, Ergocalcife rol, 1.25 MG (29395 UT) oral Capsule 06-03 00:00: 00 Yes [id number] 01290S Take 1 capsule (50,000 units total) by mouth once a week Jemma mejia Levothyroxi ne Sodium 125 MCG oral Tablet 06-03 00:00: 00 Yes [id number] 125ug Take 1 tablet (125 mcg total) by mouth daily Jemma mejia Ondansetron (ZOFRAN) 4 MG oral TABLET DISPERSIBLE 06-03 00:00: 00 Yes [id number] 4mg Q.[id number] 3D Take 1 tablet (4 mg total) by mouth every 8 hours as needed for nausea Jemma mejia hydroCHLORO thiazide 12.5 MG oral Capsule 06-03 00:00: 00 Yes [id number] 12.5mg Take 1 capsule (12.5 mg total) by mouth daily Jemma mejia Insulin NPH Isophane & Regular (NOVOLIN 70/30 SC) 05-25 08:43: 00 Yes [id number] 3 20U Inject 20 units into the skin daily Jemma mejia Norethin-Et h Estrad-Fe Biphas (Lo Loestrin Fe) 1 MG-10 MCG / 10 MCG oral Tablet 05-25 00:00: 00 Yes [id number] 1{tbl} Take 1 tablet by mouth daily Jemma mejia Losartan Potassium 25 MG oral Tablet 05-25 00:00: 00 Yes [id number] 25mg Take 1 tablet (25 mg total) by mouth daily Jemma mejia Semaglutide (0.25 or 0.5 mg/dose) 2 mg/1.5 mL SQ Solution Pen-Injecto r 05-25 00:00: 00 Yes [id number] 3 .25mg Inject 0.25 mg into the skin once a week Jemma mejia Metformin HCl 500 MG oral Tablet 05-25 00:00: 00 Yes [id number] 3 500mg Take 1 tablet (500 mg total) by mouth daily (with breakfast) Jemma mejia Trulicity 0.75 MG/0.5ML subcutaneou s Solution Pen-injecto r 05-25 00:00: 00 Yes [id number] 3 .75mg Inject 0.75 mg into the skin once a week Jemma mejia losartan 100 mg tablet 07-26 00:00: 00 09-17 00:00 :00 No [id number] 100mg Take 1 tablet by mouth daily. [facility] ergocalcife rol, vitamin d2, 1,250 mcg (50,000 unit) capsule 07-02 00:00: 00 Yes [id number] 57244W Take 1 capsule by mouth weekly. [facility] insulin NPH hum/reg insulin hm (NOVOLIN 70/30 SC) 06-24 09:25: 30 Yes inject under the skin. [facility] OLANZapine (ZYPREXA) 5 mg tablet 06-24 00:00: 00 09-17 00:00 :00 No [id number] 5mg Take 1 tablet by mouth daily. [facility] atorvastati n 20 mg tablet 06-24 00:00: 00 09-17 00:00 :00 No [id number] 20mg Take 1 tablet by mouth at bedtime. [facility] levothyroxi ne (EUTHYROX) 100 mcg tablet 06-24 00:00: 00 09-17 00:00 :00 No [id number] 100ug Take 1 tablet by mouth every morning. [facility] metroNIDAZO LE 500 mg tablet 2016-04 00:00: 00 09-17 00:00 :00 No [id number] 500mg Take 1 tablet by mouth 2 (two) times daily. [facility] Immunizations Ordered Immunization Name Filled Immunization Name Date Status Comments Source HPV 9 (Human Papillomavirus) 2022-07-30 00:00:00 Completed Jemma Shaver - External HPV 9 (Human Papillomavirus) 2022-07-30 00:00:00 Completed Jemma Shaver - External HPV 9 (Human Papillomavirus) 2022-07-30 00:00:00 Completed Jemma Shaver - External HPV 9 (Human Papillomavirus) 2022-07-30 00:00:00 Misbah Shaver - External HPV 9 (Human Papillomavirus) 2022-07-30 00:00:00 Completed Jemma Lund External HPV 9 (Human Papillomavirus) 2022-07-30 00:00:00 Misbah Shaver - External Hepatitis B- 2 Dose (HEPLISAV B) 2022-07-19 00:00:00 Completed Jemma Shaver - External Hepatitis B- 2 Dose (HEPLISAV B) 2022-07-19 00:00:00 Completed Jemma Seybold - External Hepatitis B- 2 Dose (HEPLISAV B) 2022-07-19 00:00:00 Completed Jemma Seybold - External Hepatitis B- 2 Dose (HEPLISAV B) 2022-07-19 00:00:00 Completed Jemma Seybold - External Hepatitis B- 2 Dose (HEPLISAV B) 2022-07-19 00:00:00 Completed Jemma Seybold - External Hepatitis B- 2 Dose (HEPLISAV B) 2022-07-19 00:00:00 Completed Jemma Mcmahonybold - External HPV 9 (Human Papillomavirus) 2022-06-27 00:00:00 Completed Jemma Seybold - External HPV 9 (Human Papillomavirus) 2022-06-27 00:00:00 Completed Jemma Seybold - External HPV 9 (Human Papillomavirus) 2022-06-27 00:00:00 Completed Jemma Mcmahonybold - External HPV 9 (Human Papillomavirus) 2022-06-27 00:00:00 Completed Jemma Seybold - External HPV 9 (Human Papillomavirus) 2022-06-27 00:00:00 Completed Jemma Seybold - External HPV 9 (Human Papillomavirus) 2022-06-27 00:00:00 Completed Jemma Shaver - External Pneumococcal Vaccine, Polysaccharide 2022-06-21 00:00:00 Completed Jemma Shaver - External Tdap- (Boostrix, Adacel) 2022-06-21 00:00:00 Completed Jemma Shaver - External Hepatitis B, Adult (3 dose) 2022-06-21 00:00:00 Completed Jemma Mcmahonybold - External Pneumococcal Vaccine, Polysaccharide 2022-06-21 00:00:00 Completed Jemma Mcmahonybold - External Tdap- (Boostrix, Adacel) 2022-06-21 00:00:00 Completed Jemma Shaver - External Hepatitis B, Adult (3 dose) 2022-06-21 00:00:00 Completed Jemma Rodold - External Pneumococcal Vaccine, Polysaccharide 2022-06-21 00:00:00 Completed Jemma Shaver - External Tdap- (Boostrix, Adacel) 2022-06-21 00:00:00 Completed Jemma Seybold - External Hepatitis B, Adult (3 dose) 2022-06-21 00:00:00 Completed Jemma Seybold - External Pneumococcal Vaccine, Polysaccharide 2022-06-21 00:00:00 Completed Jemma Seybold - External Tdap- (Boostrix, Adacel) 2022-06-21 00:00:00 Completed Jemma Seybold - External Hepatitis B, Adult (3 dose) 2022-06-21 00:00:00 Completed Jemma Seybold - External Pneumococcal Vaccine, Polysaccharide 2022-06-21 00:00:00 Completed Jemma Seybold - External Tdap- (Boostrix, Adacel) 2022-06-21 00:00:00 Completed Jemma Seybold - External Hepatitis B, Adult (3 dose) 2022-06-21 00:00:00 Completed Jemma Seybold - External Pneumococcal Vaccine, Polysaccharide 2022-06-21 00:00:00 Completed Jemma Seybold - External Tdap- (Boostrix, Adacel) 2022-06-21 00:00:00 Completed Jemma Seybold - External Hepatitis B, Adult (3 dose) 2022-06-21 00:00:00 Completed Jemma Seybold - External Pneumococcal Vaccine, Polysaccharide 2022-06-21 00:00:00 Completed Jemma Seybold - External Tdap- (Boostrix, Adacel) 2022-06-21 00:00:00 Completed Jemma Seybold - External Hepatitis B, Adult (3 dose) 2022-06-21 00:00:00 Completed Jemma Seybold - External Influenza Virus Vaccine, age 6 months and up 2021-11-22 00:00:00 Completed Jemma Seybold - External Influenza Virus Vaccine, age 6 months and up 2021-11-22 00:00:00 Completed Jemma Seybold - External Influenza Virus Vaccine, age 6 months and up 2021-11-22 00:00:00 Completed Jemma Seybold - External Influenza Virus Vaccine, age 6 months and up 2021-11-22 00:00:00 Completed Jemma Seybold - External Influenza Virus Vaccine, age 6 months and up 2021-11-22 00:00:00 Completed Jemma Seybold - External Influenza Virus Vaccine, age 6 months and up 2021-11-22 00:00:00 Completed Jemma Seybold - External Influenza Virus Vaccine, age 6 months and up 2021-11-22 00:00:00 Completed Jemma Seybold - External Influenza Virus Vaccine, age 6 months and up 2021-11-22 00:00:00 Completed Jemma Seybold - External Influenza Virus Vaccine, age 6 months and up 2021-11-22 00:00:00 Completed Jemma Seybold - External SARS-COV-2 COVID-19 PFIZER VACCINE 2021-04-07 00:00:00 Completed [facility] SARS-COV-2 COVID-19 PFIZER VACCINE 2021-04-07 00:00:00 Completed [facility] SARS-COV-2 COVID-19 PFIZER VACCINE 2021-04-07 00:00:00 Completed [facility] SARS-COV-2 COVID-19 PFIZER VACCINE 2021-04-07 00:00:00 Completed [facility] SARS-COV-2 COVID-19 PFIZER VACCINE 2021-04-07 00:00:00 Completed [facility] COVID-19 VACCINE PFIZER 12+ ([place] cap) 2021-04-07 00:00:00 Completed Jemma Seybold - External Covid-19 Vaccine (Pfizer), Mrna-lnp, Cosme Protein, Pf, 30mcg/0.3ml,IM 2021-04-07 00:00:00 Completed Jemma Seybold - External COVID-19 VACCINE PFIZER 12+ ([place] cap) 2021-04-07 00:00:00 Completed Jemma Seybold - External Covid-19 Vaccine (Pfizer), Mrna-lnp, Cosme Protein, Pf, 30mcg/0.3ml,IM 2021-04-07 00:00:00 Completed Jemma Seybold - External COVID-19 VACCINE PFIZER 12+ ([place] cap) 2021-04-07 00:00:00 Completed Jemma Seybold - External Covid-19 Vaccine (Pfizer), Mrna-lnp, Cosme Protein, Pf, 30mcg/0.3ml,IM 2021-04-07 00:00:00 Completed Jemma Seybold - External COVID-19 VACCINE PFIZER 12+ ([place] cap) 2021-04-07 00:00:00 Completed Jemma Seybold - External Covid-19 Vaccine (Pfizer), Mrna-lnp, Cosme Protein, Pf, 30mcg/0.3ml,IM 2021-04-07 00:00:00 Completed Jemma Seybold - External COVID-19 VACCINE PFIZER 12+ ([place] cap) 2021-04-07 00:00:00 Completed Jemma Seybold - External Covid-19 Vaccine (Pfizer), Mrna-lnp, Cosme Protein, Pf, 30mcg/0.3ml,IM 2021-04-07 00:00:00 Completed Jemma Seybold - External COVID-19 VACCINE PFIZER 12+ ([place] cap) 2021-04-07 00:00:00 Completed Jemma Seybold - External Covid-19 Vaccine (Pfizer), Mrna-lnp, Cosme Protein, Pf, 30mcg/0.3ml,IM 2021-04-07 00:00:00 Completed Jemma Seybold - External COVID-19 VACCINE PFIZER 12+ ([place] cap) 2021-04-07 00:00:00 Completed Jemma Seybold - External Covid-19 Vaccine (Pfizer), Mrna-lnp, Cosme Protein, Pf, 30mcg/0.3ml,IM 2021-04-07 00:00:00 Completed Jemma Seybold - External COVID-19 VACCINE PFIZER 12+ ([place] cap) 2021-04-07 00:00:00 Completed Jemma Seybold - External Covid-19 Vaccine (Pfizer), Mrna-lnp, Cosme Protein, Pf, 30mcg/0.3ml,IM 2021-04-07 00:00:00 Completed Jemma Seybold - External COVID-19 VACCINE PFIZER 12+ ([place] cap) 2021-04-07 00:00:00 Completed Jemma Seybold - External Covid-19 Vaccine (Pfizer), Mrna-lnp, Cosme Protein, Pf, 30mcg/0.3ml,IM 2021-04-07 00:00:00 Completed Jemma Seybold - External Influenza Virus Vaccine Quad IM 3+ YRS 2021-01-22 00:00:00 Completed [facility] Influenza Virus Vaccine Quad IM 3+ YRS 2021-01-22 00:00:00 Completed [facility] Influenza Virus Vaccine Quad IM 3+ YRS 2021-01-22 00:00:00 Completed [facility] Influenza Virus Vaccine Quad IM 3+ YRS 2021-01-22 00:00:00 Completed [facility] Influenza Virus Vaccine Quad IM 3+ YRS 2021-01-22 00:00:00 Completed [facility] Influenza Virus Vaccine, No Preserv, age 6 months and up 2021-01-22 00:00:00 Completed Jemma Seybold - External Influenza Virus Vaccine, No Preserv, age 6 months and up 2021-01-22 00:00:00 Completed Jemma Seybold - External Influenza Virus Vaccine, No Preserv, age 6 months and up 2021-01-22 00:00:00 Completed Jemma Seybold - External Influenza Virus Vaccine, No Preserv, age 6 months and up 2021-01-22 00:00:00 Completed Jemam Seybold - External Influenza Virus Vaccine, No Preserv, age 6 months and up 2021-01-22 00:00:00 Completed Jemma Seybold - External Influenza Virus Vaccine, No Preserv, age 6 months and up 2021-01-22 00:00:00 Completed Jemma Seybold - External Influenza Virus Vaccine, No Preserv, age 6 months and up 2021-01-22 00:00:00 Completed Jemma Seybold - External Influenza Virus Vaccine, No Preserv, age 6 months and up 2021-01-22 00:00:00 Completed Jemma Seybold - External Influenza Virus Vaccine, No Preserv, age 6 months and up 2021-01-22 00:00:00 Completed Jemma Seybold - External SARS-COV-2 COVID-19 PFIZER VACCINE 2020-07-31 00:00:00 Completed [facility] SARS-COV-2 COVID-19 PFIZER VACCINE 2020-07-31 00:00:00 Completed [facility] SARS-COV-2 COVID-19 PFIZER VACCINE 2020-07-31 00:00:00 Completed [facility] SARS-COV-2 COVID-19 PFIZER VACCINE 2020-07-31 00:00:00 Completed [facility] SARS-COV-2 COVID-19 PFIZER VACCINE 2020-07-31 00:00:00 Completed [facility] COVID-19 VACCINE PFIZER 12+ ([place] cap) 2020-07-31 00:00:00 Completed Jemma Seybold - External Covid-19 Vaccine (Pfizer), Mrna-lnp, Cosme Protein, Pf, 30mcg/0.3ml,IM 2020-07-31 00:00:00 Completed Jemma Seybold - External COVID-19 VACCINE PFIZER 12+ ([place] cap) 2020-07-31 00:00:00 Completed Jemma Seybold - External Covid-19 Vaccine (Pfizer), Mrna-lnp, Cosme Protein, Pf, 30mcg/0.3ml,IM 2020-07-31 00:00:00 Completed Jemma Seybold - External COVID-19 VACCINE PFIZER 12+ ([place] cap) 2020-07-31 00:00:00 Completed Jemma Seybold - External Covid-19 Vaccine (Pfizer), Mrna-lnp, Cosme Protein, Pf, 30mcg/0.3ml,IM 2020-07-31 00:00:00 Completed Jemma Seybold - External COVID-19 VACCINE PFIZER 12+ ([place] cap) 2020-07-31 00:00:00 Completed Jemma Seybold - External Covid-19 Vaccine (Pfizer), Mrna-lnp, Cosme Protein, Pf, 30mcg/0.3ml,IM 2020-07-31 00:00:00 Completed Jemma Seybold - External COVID-19 VACCINE PFIZER 12+ ([place] cap) 2020-07-31 00:00:00 Completed Jemma Seybold - External COVID-19 VACCINE PFIZER 12+ ([place] cap) 2020-07-31 00:00:00 Completed Jemma Seybold - External Covid-19 Vaccine (Pfizer), Mrna-lnp, Cosme Protein, Pf, 30mcg/0.3ml,IM 2020-07-31 00:00:00 Completed Jemma Seybold - External Covid-19 Vaccine (Pfizer), Mrna-lnp, Cosme Protein, Pf, 30mcg/0.3ml,IM 2020-07-31 00:00:00 Completed Jemma Seybold - External COVID-19 VACCINE PFIZER 12+ ([place] cap) 2020-07-31 00:00:00 Completed Jemma Seybold - External Covid-19 Vaccine (Pfizer), Mrna-lnp, Cosme Protein, Pf, 30mcg/0.3ml,IM 2020-07-31 00:00:00 Completed Jemma Seybold - External COVID-19 VACCINE PFIZER 12+ ([place] cap) 2020-07-31 00:00:00 Completed Jemma Seybold - External Covid-19 Vaccine (Pfizer), Mrna-lnp, Cosme Protein, Pf, 30mcg/0.3ml,IM 2020-07-31 00:00:00 Completed Jemma Seybold - External COVID-19 VACCINE PFIZER 12+ ([place] cap) 2020-07-31 00:00:00 Completed Jemma Seybold - External Covid-19 Vaccine (Pfizer), Mrna-lnp, Cosme Protein, Pf, 30mcg/0.3ml,IM 2020-07-31 00:00:00 Completed Jemma Seybold - External SARS-COV-2 COVID-19 PFIZER VACCINE 2020-07-09 00:00:00 Completed [facility] SARS-COV-2 COVID-19 PFIZER VACCINE 2020-07-09 00:00:00 Completed [facility] SARS-COV-2 COVID-19 PFIZER VACCINE 2020-07-09 00:00:00 Completed [facility] SARS-COV-2 COVID-19 PFIZER VACCINE 2020-07-09 00:00:00 Completed [facility] SARS-COV-2 COVID-19 PFIZER VACCINE 2020-07-09 00:00:00 Completed [facility] COVID-19 VACCINE PFIZER 12+ ([place] cap) 2020-07-09 00:00:00 Completed Jemma Seybold - External Covid-19 Vaccine (Pfizer), Mrna-lnp, Cosme Protein, Pf, 30mcg/0.3ml,IM 2020-07-09 00:00:00 Completed Jemma Seybold - External COVID-19 VACCINE PFIZER 12+ ([place] cap) 2020-07-09 00:00:00 Completed Jemma Seybold - External Covid-19 Vaccine (Pfizer), Mrna-lnp, Cosme Protein, Pf, 30mcg/0.3ml,IM 2020-07-09 00:00:00 Completed Jemma Seybold - External COVID-19 VACCINE PFIZER 12+ ([place] cap) 2020-07-09 00:00:00 Completed Jemma Seybold - External Covid-19 Vaccine (Pfizer), Mrna-lnp, Cosme Protein, Pf, 30mcg/0.3ml,IM 2020-07-09 00:00:00 Completed Jemma Seybold - External COVID-19 VACCINE PFIZER 12+ ([place] cap) 2020-07-09 00:00:00 Completed Jemma Seybold - External Covid-19 Vaccine (Pfizer), Mrna-lnp, Cosme Protein, Pf, 30mcg/0.3ml,IM 2020-07-09 00:00:00 Completed Jemma Seybold - External COVID-19 VACCINE PFIZER 12+ ([place] cap) 2020-07-09 00:00:00 Completed Jemma Seybold - External COVID-19 VACCINE PFIZER 12+ ([place] cap) 2020-07-09 00:00:00 Completed Jemma Seybold - External Covid-19 Vaccine (Pfizer), Mrna-lnp, Cosme Protein, Pf, 30mcg/0.3ml,IM 2020-07-09 00:00:00 Completed Jemma Seybold - External Covid-19 Vaccine (Pfizer), Mrna-lnp, Cosme Protein, Pf, 30mcg/0.3ml,IM 2020-07-09 00:00:00 Completed Jemma Seybold - External COVID-19 VACCINE PFIZER 12+ ([place] cap) 2020-07-09 00:00:00 Completed Jemma Seybold - External Covid-19 Vaccine (Pfizer), Mrna-lnp, Cosme Protein, Pf, 30mcg/0.3ml,IM 2020-07-09 00:00:00 Completed Jemma Seybold - External COVID-19 VACCINE PFIZER 12+ ([place] cap) 2020-07-09 00:00:00 Completed Jemma Seybold - External Covid-19 Vaccine (Pfizer), Mrna-lnp, Cosme Protein, Pf, 30mcg/0.3ml,IM 2020-07-09 00:00:00 Completed Jemma Seybold - External COVID-19 VACCINE PFIZER 12+ ([place] cap) 2020-07-09 00:00:00 Completed Jemma Rodold - External Covid-19 Vaccine (Doostang), Mrna-lnp, Cosme Protein, Pf, 30mcg/0.3ml,IM 2020-07-09 00:00:00 Completed Jemma Rodold - External TDAP 2017-02-20 00:00:00 Completed [facility] TDAP 2017-02-20 00:00:00 Completed [facility] TDAP 2017-02-20 00:00:00 Completed [facility] TDAP 2017-02-20 00:00:00 Completed [facility] TDAP 2017-02-20 00:00:00 Completed [facility] Tdap- (Boostrix, Adacel) 2017-02-20 00:00:00 Completed Jemma Seybold - External Tdap- (Boostrix, Adacel) 2017-02-20 00:00:00 Completed Jemma Seybold - External Tdap- (Boostrix, Adacel) 2017-02-20 00:00:00 Completed Jemma Seybold - External Tdap- (Boostrix, Adacel) 2017-02-20 00:00:00 Completed Jemma Seybold - External Tdap- (Boostrix, Adacel) 2017-02-20 00:00:00 Completed Jemma Seybold - External Tdap- (Boostrix, Adacel) 2017-02-20 00:00:00 Completed Jemma Seybold - External Tdap- (Boostrix, Adacel) 2017-02-20 00:00:00 Completed Jemma Seybold - External Tdap- (Boostrix, Adacel) 2017-02-20 00:00:00 Completed Jemma Seybold - External Tdap- (Boostrix, Adacel) 2017-02-20 00:00:00 [facility] Unknown Completed [facility] SARS-COV-2 COVID-19 PFIZER VACCINE Unknown Completed [facility] SARS-COV-2 COVID-19 PFIZER VACCINE Unknown Completed [facility] Influenza Virus Vaccine Quad IM 3+ YRS Unknown Completed [facility] TDAP Unknown Completed [facility] SARS-COV-2 COVID-19 PFIZER VACCINE Unknown Completed [facility] SARS-COV-2 COVID-19 PFIZER VACCINE Unknown Completed [facility] Influenza Virus Vaccine Quad IM 3+ YRS Unknown Completed [facility] TDAP Unknown Completed [facility] SARS-COV-2 COVID-19 PFIZER VACCINE Unknown Completed [facility] SARS-COV-2 COVID-19 PFIZER VACCINE Unknown Completed [facility] Influenza Virus Vaccine Quad IM 3+ YRS Unknown Completed [facility] COVID-19 VACCINE PFIZER 12+ ([place] cap) Unknown Completed Jemma Seybold - External Covid-19 Vaccine (Pfizer), Mrna-lnp, Cosme Protein, Pf, 30mcg/0.3ml,IM Unknown Completed Jemma Seybol d - External Covid-19 Vaccine (Pfizer), Mrna-lnp, Cosme Protein, Pf, 30mcg/0.3ml,IM Unknown Completed Jemma Seybol d - External Influenza Virus Vaccine, No Preserv, age 6 months and up Unknown Completed Jemma Terry eybold - External Tdap- (Boostrix, Adacel) Unknown Completed Jemma Seybold - External Influenza Virus Vaccine, age 6 months and up Unknown Completed Jemma Seybold - External Pneumococcal Vaccine, Polysaccharide Unknown Completed Jemma Mcmahonybol d - External Hepatitis B, Adult (3 dose) Unknown Completed Jemma Seybold - External HPV 9 (Human Papillomavirus) Unknown Completed Jemma Se[employer] ld - External Hepatitis B- 2 Dose (HEPLISAV B) Unknown Completed Jemma ybold - External COVID-19 VACCINE PFIZER 12+ ([place] cap) Unknown Completed Jemma Seybold - External Covid-19 Vaccine (Pfizer), Mrna-lnp, Cosme Protein, Pf, 30mcg/0.3ml,IM Unknown Completed Jemma Seybol d - External Covid-19 Vaccine (Pfizer), Mrna-lnp, Cosme Protein, Pf, 30mcg/0.3ml,IM Unknown Completed Jemma Seybol d - External Influenza Virus Vaccine, No Preserv, age 6 months and up Unknown Completed Jemam S eybold - External Tdap- (Boostrix, Adacel) Unknown Completed Jemma Seybold - External Influenza Virus Vaccine, age 6 months and up Unknown Completed Jemma Seybold - External Pneumococcal Vaccine, Polysaccharide Unknown Completed Jemma Rodol d - External Hepatitis B, Adult (3 dose) Unknown Completed Jemma Rodold - External HPV 9 (Human Papillomavirus) Unknown Completed Jemma Rodo ld - External Hepatitis B- 2 Dose (HEPLISAV B) Unknown Completed Jemma Mcmahonybold - External COVID-19 VACCINE [facility] 12+ ([place] cap) Unknown Completed Jemma Mcmahonybold - External Covid-19 Vaccine ([place]ostang), Mrna-lnp, Cosme Protein, Pf, 30mcg/0.3ml,IM Unknown Completed Jemma Mcmahonybol d - External Covid-19 Vaccine (Pfizer), Mrna-lnp, Cosme Protein, Pf, 30mcg/0.3ml,IM Unknown Completed Jemma Rodol d - External Influenza Virus Vaccine, No Preserv, age 6 months and up Unknown Completed Jemma Stewart eybold - External Tdap- (Boostrix, Adacel) Unknown Completed Jemma Rodold - External Influenza Virus Vaccine, age 6 months and up Unknown Completed Jemma Mcmahonybold - External Pneumococcal Vaccine, Polysaccharide Unknown Completed Jemma Rodol d - External Hepatitis B, Adult (3 dose) Unknown Completed Jemma Mcmahonybold - External HPV 9 (Human Papillomavirus) Unknown Completed Jemma Rodo ld - External Hepatitis B- 2 Dose (HEPLISAV B) Unknown Completed Jemma Mcmahonybold - External Influenza Virus Vaccine, Unspecified Formulation Unknown Completed Jemma Mcmahonybold - External COVID-19 VACCINE [facility] 12+ ([place] cap) Unknown Completed Jemma Mcmahonybold - External Covid-19 Vaccine ([place]ang), Mrna-lnp, Cosme Protein, Pf, 30mcg/0.3ml,IM Unknown Completed Jemma Mcmahonybol d - External Covid-19 Vaccine (Pfizer), Mrna-lnp, Cosme Protein, Pf, 30mcg/0.3ml,IM Unknown Completed Jemma Rodol d - External Influenza Virus Vaccine, No Preserv, age 6 months and up Unknown Completed Jemma S eybold - External Tdap- (Boostrix, Adacel) Unknown Completed Jemma Mcmahonybold - External Influenza Virus Vaccine, age 6 months and up Unknown Completed Jemma Mcmahonybold - External Pneumococcal Vaccine, Polysaccharide Unknown Completed Jemma Rodol d - External Hepatitis B, Adult (3 dose) Unknown Completed Jemma Mcmahonybold - External HPV 9 (Human Papillomavirus) Unknown Completed Jemma Rodo ld - External Hepatitis B- 2 Dose (HEPLISAV B) Unknown Completed Jemma Mcmahonold - External Influenza Virus Vaccine, Unspecified Formulation Unknown Completed Jemma Seold - External COVID-19 VACCINE P[facility]ZER 12+ ([place] cap) Unknown Completed Jemma Mcmahonybold - External Covid-19 Vaccine (Pfizer), Mrna-lnp, Cosme Protein, Pf, 30mcg/0.3ml,IM Unknown Completed Jemma Seol d - External Covid-19 Vaccine (Pfizer), Mrna-lnp, Cosme Protein, Pf, 30mcg/0.3ml,IM Unknown [facility] Influenza Virus Vaccine, No Preserv, age 6 months and up Unknown Completed Jemma S eybold - External Tdap- (Boostrix, Adacel) Unknown Completed Jemma old - External Influenza Virus Vaccine, age 6 months and up Unknown Completed [facility] - External Pneumococcal Vaccine, Polysaccharide Unknown Completed Jemma Seol d - External Hepatitis B, Adult (3 dose) Unknown [facility] HPV 9 (Human Papillomavirus) Unknown Completed Jemma Seo ld - External Hepatitis B- 2 Dose (HEPLISAV B) Unknown Completed [facility] - External Influenza Virus Vaccine, Unspecified Formulation Unknown [facility] Pneumococcal Vaccine, Conjugate 20 Unknown Completed Jemma Seashia - External AFLURIA TRIVALENT MDV Unknown [facility] COVID-19 VACCINE P[facility]ER 12+ ([place] cap) Unknown Completed Jemma Mcmahonold - External Covid-19 Vaccine (Pfizer), Mrna-lnp, Cosme Protein, Pf, 30mcg/0.3ml,IM Unknown Completed Jemma Seol d - External Covid-19 Vaccine (Pfizer), Mrna-lnp, Cosme Protein, Pf, 30mcg/0.3ml,IM Unknown Completed Jemma Seol d - External Influenza Virus Vaccine, No Preserv, age 6 months and up Unknown Completed Jemma S eybold - External Tdap- (Boostrix, Adacel) Unknown Completed Jemma old - External Influenza Virus Vaccine, age 6 months and up Unknown Completed [facility] - External Pneumococcal Vaccine, Polysaccharide Unknown Completed [facility] d - External Hepatitis B, Adult (3 dose) Unknown Completed Jemma Shaver - External HPV 9 (Human Papillomavirus) Unknown Completed Jemma oRdo ld - External Hepatitis B- 2 Dose (HEPLISAV B) Unknown Completed Jemma Rodold - External Influenza Virus Vaccine, Unspecified Formulation Unknown Completed Jemma Mcmahonybold - External Pneumococcal Vaccine, Conjugate 20 Unknown Completed Jemma Rodold - External AFLURIA TRIVALENT MDV Unknown Completed Jemma Shaver - External Shingles IM (Shingrix) Unknown Completed Jemma Shaver - External COVID-19 VACCINE P[facility] 12+ ([place] cap) Unknown Completed Jemma Mcmahonybold - External Covid-19 Vaccine (Doostang), Mrna-lnp, Cosme Protein, Pf, 30mcg/0.3ml,IM Unknown Completed Jemma Rodol d - External Covid-19 Vaccine (Doostang), Mrna-lnp, Cosme Protein, Pf, 30mcg/0.3ml,IM Unknown Completed Jemma Chowdhury d - External Influenza Virus Vaccine, No Preserv, age 6 months and up Unknown Completed Jemma Terry pradobowalt - External Tdap- (Boostrix, Adacel) Unknown Completed Jemma Shaver - External Influenza Virus Vaccine, age 6 months and up Unknown Completed Jemma Shaver - External Pneumococcal Vaccine, Polysaccharide Unknown Completed Jemma Chowdhury d - External Hepatitis B, Adult (3 dose) Unknown Completed Jemma Shaver - External HPV 9 (Human Papillomavirus) Unknown Completed Jemma Jarvis ld - External Hepatitis B- 2 Dose (HEPLISAV B) Unknown Completed Jemma Shaver - External Influenza Virus Vaccine, Unspecified Formulation Unknown Completed Jemma Shaver - External Pneumococcal Vaccine, Conjugate 20 Unknown Completed Jemma Rodold - External AFLURIA TRIVALENT MDV Unknown Completed Jemma Shaver - External Shingles IM (Shingrix) Unknown Completed Jemma Shaver - External Vital Signs Vital Name Observation Time Observation Value Comments Terry last Systolic blood pressure 2024-08-23 14:22:00 122 mm[Hg] Jemma Rodo ld - External Diastolic blood pressure 2024-08-23 14:22:00 80 mm[Hg] Jemma Rodo ld - External Heart rate 2024-08-23 14:22:00 75 /min Dilcia Shaver - External Body temperature 2024-08-23 14:22:00 35.94 Joselyn Jemma Seybold - External Respiratory rate 2024-08-23 14:22:00 14 /min Jemma Seybold - External Body height 2024-08-23 14:22:00 162.6 cm Dulce Maria ey Seybold - External Body weight 2024-08-23 14:22:00 69.4 kg Dulce Maria ey Seybold - External BMI 2024-08-23 14:22:00 26.26 kg/m2 Dulce Maria ey Seybold - External Oxygen saturation in Arterial blood by Pulse oximetry 2024-08-23 14:22:00 98 /min Jemma Seybo ld - External Systolic blood pressure 2024-07-12 18:02:00 164 mm[Hg] Jemma Seybo ld - External Diastolic blood pressure 2024-07-12 18:02:00 100 mm[Hg] Jemma Seybo ld - External Heart rate 2024-07-12 17:56:00 94 /min Antoniose y Seybold - External Body temperature 2024-07-12 17:56:00 35.28 Joselyn Jemma Seybold - External Respiratory rate 2024-07-12 17:56:00 16 /min Jemma Seybold - External Body height 2024-07-12 17:56:00 162.6 cm Dulce Maria ey Seybold - External Body weight 2024-07-12 17:56:00 72.666 kg Dulce Maria ey Seybold - External BMI 2024-07-12 17:56:00 27.50 kg/m2 Dulce Maria ey Seybold - External Oxygen saturation in Arterial blood by Pulse oximetry 2024-07-12 17:56:00 99 /min Jemma Seybo ld - External Systolic blood pressure 2024-01-09 12:54:00 138 mm[Hg] Jemma Seybo ld - External Diastolic blood pressure 2024-01-09 12:54:00 92 mm[Hg] Jemma Seybo ld - External Heart rate 2024-01-09 12:48:00 86 /min Kelse y Seybold - External Body temperature 2024-01-09 12:48:00 35.89 Joselyn Jemma Seybold - External Respiratory rate 2024-01-09 12:48:00 16 /min Jemma Seybold - External Body height 2024-01-09 12:48:00 165.1 cm Dulce Maria ey Seybold - External Body weight 2024-01-09 12:48:00 69.4 kg Dulce Maria ey Seybold - External BMI 2024-01-09 12:48:00 25.46 kg/m2 Dulce Maria ey Seybold - External Systolic blood pressure 2023-06-07 18:57:00 130 mm[Hg] Jemma Seybo ld - External Diastolic blood pressure 2023-06-07 18:57:00 90 mm[Hg] Jemma Seybo ld - External Heart rate 2023-06-07 18:57:00 86 /min Kelse y Seybold - External Body temperature 2023-06-07 18:57:00 35.94 Joselyn Jemma Seybold - External Respiratory rate 2023-06-07 18:57:00 14 /min Jemma Seybold - External Body height 2023-06-07 18:57:00 165.1 cm Dulce Maria ey Seybold - External Body weight 2023-06-07 18:57:00 70.761 kg Dulce Maria ey Seybold - External BMI 2023-06-07 18:57:00 25.96 kg/m2 Dulce Maria ey Seybold - External Systolic blood pressure 2023-02-08 14:35:00 132 mm[Hg] Jemma Seybo ld - External Diastolic blood pressure 2023-02-08 14:35:00 84 mm[Hg] Jemma Seybo ld - External Heart rate 2023-02-08 14:35:00 80 /min Kelse y Seybold - External Body height 2023-02-08 14:35:00 165.1 cm Dulce Maria ey Seybold - External Body weight 2023-02-08 14:35:00 72.938 kg Dulce Maria ey Seybold - External BMI 2023-02-08 14:35:00 26.76 kg/m2 Dulce Maria ey Seybold - External Systolic blood pressure 2023-01-18 16:02:00 123 mm[Hg] Jemma Seybo ld - External Diastolic blood pressure 2023-01-18 16:02:00 78 mm[Hg] Jemma Seybo ld - External Heart rate 2023-01-18 16:02:00 81 /min Kelse y Seybold - External Body temperature 2023-01-18 16:02:00 36.78 Joselyn Jemma Seybold - External Respiratory rate 2023-01-18 16:02:00 16 /min Jemma Seybold - External Body height 2023-01-18 16:02:00 160 cm Dulce Maria ey Seybold - External Body weight 2023-01-18 16:02:00 72.122 kg Dulce Maria ey Seybold - External BMI 2023-01-18 16:02:00 28.17 kg/m2 Dulce Maria ey Seybold - External Systolic blood pressure 2022-12-28 19:27:00 132 mm[Hg] Jemma Seybo ld - External Diastolic blood pressure 2022-12-28 19:27:00 82 mm[Hg] Jemma Seybo ld - External Heart rate 2022-12-28 19:27:00 79 /min Kelse y Seybold - External Body temperature 2022-12-28 19:27:00 36.78 Joselyn Jemma Seybold - External Respiratory rate 2022-12-28 19:27:00 16 /min Jemma Seybold - External Body height 2022-12-28 19:27:00 160 cm Dulce Maria ey Seybold - External Body weight 2022-12-28 19:27:00 70.761 kg Dulce Maria ey Seybold - External BMI 2022-12-28 19:27:00 27.63 kg/m2 Dulce Maria ey Seybold - External Systolic blood pressure 2022-12-19 12:52:00 110 mm[Hg] Jemma Seybo ld - External Diastolic blood pressure 2022-12-19 12:52:00 60 mm[Hg] Jemma Seybo ld - External Heart rate 2022-12-19 12:52:00 88 /min Kelse y Seybold - External Body temperature 2022-12-19 12:52:00 35.06 Joselyn Jemma Seybold - External Respiratory rate 2022-12-19 12:52:00 20 /min Jemma Seybold - External Body height 2022-12-19 12:52:00 160 cm Dulce Maria ey Seybold - External Body weight 2022-12-19 12:52:00 71.215 kg Dulce Maria ey Seybold - External BMI 2022-12-19 12:52:00 27.81 kg/m2 Dulce Maria ey Seybold - External Oxygen saturation in Arterial blood by Pulse oximetry 2022-12-19 12:52:00 99 /min Jemma Mcmahonybo ld - External Systolic blood pressure 2022-09-17 17:00:00 129 mm[Hg] [facility] Diastolic blood pressure 2022-09-17 17:00:00 77 mm[Hg] [facility] Heart rate 2022-09-17 17:00:00 82 /min [facility] Oxygen saturation in Arterial blood by Pulse oximetry 2022-09-17 17:00:00 98 /min [facility] Body temperature 2022-09-17 16:00:00 36.39 Joselyn [facility] Respiratory rate 2022-09-17 16:00:00 17 /min [facility] Body weight 2022-09-17 09:00:00 72.485 kg [facility] BMI 2022-09-17 09:00:00 26.59 kg/m2 [facility] Body height 2022-09-16 23:00:00 165.1 cm [facility] Systolic blood pressure 2022-09-15 14:37:00 140 mm[Hg] Jemma Seybo ld - External Diastolic blood pressure 2022-09-15 14:37:00 87 mm[Hg] Jemma Seybo ld - External Heart rate 2022-09-15 14:37:00 67 /min Kelse y Seybold - External Body temperature 2022-09-15 14:37:00 36.39 Joselyn Jemma Seybold - External Respiratory rate 2022-09-15 14:37:00 18 /min Jemma Seybold - External Body weight 2022-09-15 14:37:00 72.576 kg Dulce Maria ey Seybold - External BMI 2022-09-15 14:37:00 27.46 kg/m2 Dulce Maria ey Seybold - External Systolic blood pressure 2022-09-15 14:35:00 140 mm[Hg] Jemma Seybo ld - External Diastolic blood pressure 2022-09-15 14:35:00 87 mm[Hg] Jemma Seybo ld - External Heart rate 2022-09-15 14:35:00 67 /min Kelse y Seybold - External Body temperature 2022-09-15 14:35:00 36.39 Joselyn Jemma Seybold - External Respiratory rate 2022-09-15 14:35:00 18 /min Jemma Seybold - External Body height 2022-09-15 14:35:00 162.6 cm Dulce Maria ey Seybold - External Body weight 2022-09-15 14:35:00 72.576 kg Dulce Maria ey Seybold - External BMI 2022-09-15 14:35:00 27.46 kg/m2 Dulce Maria ey Seybold - External Systolic blood pressure 2022-08-22 13:14:00 115 mm[Hg] Jemma Seybo ld - External Diastolic blood pressure 2022-08-22 13:14:00 87 mm[Hg] Jemma Seybo ld - External Heart rate 2022-08-22 13:14:00 71 /min Kelse y Seybold - External Body temperature 2022-08-22 13:14:00 36.61 Joselyn Jemma Seybold - External Respiratory rate 2022-08-22 13:14:00 14 /min Jemma Seybold - External Body height 2022-08-22 13:14:00 165.1 cm Dulce Maria ey Seybold - External Body weight 2022-08-22 13:14:00 75.569 kg Dulce Maria ey Seybold - External BMI 2022-08-22 13:14:00 27.72 kg/m2 Dulce Maria ey Seybold - External Oxygen saturation in Arterial blood by Pulse oximetry 2022-08-22 13:14:00 99 /min Jemma Seybo ld - External Systolic blood pressure 2022-08-01 13:40:00 129 mm[Hg] Jemma Seybo ld - External Diastolic blood pressure 2022-08-01 13:40:00 87 mm[Hg] Jemma Seybo ld - External Heart rate 2022-08-01 13:40:00 87 /min Kelse y Seybold - External Respiratory rate 2022-08-01 13:40:00 17 /min Jemma Seybold - External Body height 2022-08-01 13:40:00 165.1 cm Dulce Maria ey Seybold - External Body weight 2022-08-01 13:40:00 75.66 kg Dulce Maria ey Seybold - External BMI 2022-08-01 13:40:00 27.76 kg/m2 Dulce Maria ey Seybold - External Systolic blood pressure 2022-06-27 14:23:00 120 mm[Hg] Jemma Seybo ld - External Diastolic blood pressure 2022-06-27 14:23:00 74 mm[Hg] Jemma Seybo ld - External Heart rate 2022-06-27 14:23:00 85 /min Kelse y Seybold - External Body temperature 2022-06-27 14:23:00 36 Joselyn Jemma Seybold - External Respiratory rate 2022-06-27 14:23:00 14 /min Jemma Seybold - External Body height 2022-06-27 14:23:00 165.1 cm Dulce Maria ey Seybold - External Body weight 2022-06-27 14:23:00 78.019 kg Dulce Maria ey Seybold - External BMI 2022-06-27 14:23:00 28.62 kg/m2 Dulce Maria ey Seybold - External Systolic blood pressure 2022-06-03 19:50:00 142 mm[Hg] Jemma Seybo ld - External Diastolic blood pressure 2022-06-03 19:50:00 70 mm[Hg] Jemma Seybo ld - External Heart rate 2022-06-03 19:50:00 105 /min Kelse y Seybold - External Body temperature 2022-06-03 19:50:00 36 Joselyn Jemma Seybold - External Respiratory rate 2022-06-03 19:50:00 14 /min Jemma Seybold - External Body height 2022-06-03 19:50:00 165.1 cm Dulce Maria ey Seybold - External Body weight 2022-06-03 19:50:00 80.74 kg Dulce Maria ey Seybold - External BMI 2022-06-03 19:50:00 29.62 kg/m2 Dulce Maria ey Seybold - External Systolic blood pressure 2022-05-25 13:51:00 128 mm[Hg] Jemma Seybo ld - External Diastolic blood pressure 2022-05-25 13:51:00 92 mm[Hg] Jemma godoy - External Heart rate 2022-05-25 13:51:00 98 /min Dilcia Shaver - External Body temperature 2022-05-25 13:51:00 35.56 Joselyn Jemma Shaver - External Respiratory rate 2022-05-25 13:51:00 14 /min Jemma Shaver - External Body height 2022-05-25 13:51:00 165.1 cm Dulce Maria Shaver - External Body weight 2022-05-25 13:51:00 81.194 kg Dulce Maria Shaver - External BMI 2022-05-25 13:51:00 29.79 kg/m2 Dulce Maria Shaver - External Procedures Procedure Date / Time Performed Performing Clinician Source POCT GLUCOSE (AUTOMATED) 2022-09-17 16:18:00 [facility]hadra [facility] POCT GLUCOSE (AUTOMATED) 2022-09-17 12:19:00 Khadra [facility] URIC ACID 2022-09-17 08:47:00 Khadra [facility] THYROID STIMULATING HORMONE 2022-09-17 08:47:00 Khadra [facility] IRON PANEL 2022-09-17 08:47:00 Khadra [facility] LIPID PANEL (80540)(TOTAL CHOLESTEROL, TRIGLYCERIDES, HDL) 2022-09-17 08:46:00 Khadra [facility] ACUTE CARE VENOUS BLOOD GAS 2022-09-17 08:45:00 Khadra [facility] PHOSPHORUS 2022-09-17 08:44:00 Khadra [facility] MAGNESIUM 2022-09-17 08:44:00 Khadra [facility] FERRITIN SERUM 2022-09-17 08:44:00 Khadra [facility] TROPONIN I 2022-09-17 08:44:00 Khadra [facility] COMP. METABOLIC PANEL (97097) 2022-09-17 08:44:00 Stevenson Gaviria [facility] CBC WITH DIFF 2022-09-17 08:44:00 [facility] N-TERMINAL PRO-BNP 2022-09-17 08:44:00 Stevenson Gaviria [facility] SEDIMENTATION RATE 2022-09-17 04:50:00 Stevenson Gaviria [facility] PROTHROMBIN TIME / INR 2022-09-17 04:50:00 Demetrio Gaviria [facility] POCT GLUCOSE (AUTOMATED) 2022-09-17 04:02:00 Stevenson Gaviria [facility] POCT GLUCOSE (AUTOMATED) 2022-09-17 00:51:00 Rickie Gross [facility] MRSA / MSSA SCREEN BY PCRBRETT 2022-09-16 23:14:00 Amadou Gross [facility] XR NECK SOFT TISSUE 2022-09-16 18:03:02 Brit Tipton [facility] TROPONIN I 2022-09-16 17:36:00 [facility] COMP. METABOLIC PANEL (39104) 2022-09-16 17:36:00 Heather Tipton [facility] CBC WITH DIFF 2022-09-16 17:36:00 Heather Tipton [facility] GLYCOSYLATED HEMOGLOBIN (A1C) 2022-09-16 17:36:00 Stevenson Gaviria [facility] URINE TEST-BACK OFFICE TEST 2022-08-01 14:23:01 Judy Green - External AUTHORIZATION FOR RELEASE OF PHI 2022-07-20 05:01:00 Doctor Unassigned, [place] [facility] Encounters Start Date/Time End Date/Time Encounter Type Admission Type Attending Clinicians Care Facility Care Department Encounter ID Source 2025-01-07 09:30:00 2025-01-07 09:30:00 Outpatient MARK KIM [id number] Jemma Shaver 2024-10-07 08:00:00 2024-10-07 08:00:00 Outpatient [facility]AR[facility] [id number] [facility] 2024-10-04 10:00:00 2024-10-04 10:00:00 Outpatient KISHAN RICHARDSCÉSAR CAMERON [id number] [facility] 2024-09-17 08:15:00 2024-09-17 08:15:00 Outpatient MARK KIM JEMMA CAMERON [id number] [facility] 2024-09-09 00:00:00 2024-09-09 00:00:00 Outpatient KISHAN RICHARDS JEM[facility]ER[facility] [id number] [facility] 2024-09-09 00:00:00 2024-09-09 00:00:00 Outpatient MAURICE KISHAN JEMMA CAMER[facility] [id number] [facility] 2024-08-26 00:00:00 2024-08-26 00:00:00 Outpatient MAURICE KISHAN JEMMA CAMERON [id number] [facility] 2024-08-23 10:00:00 2024-08-23 10:00:00 Outpatient KISHAN RICHARDS JEMMA CAMER[facility] [id number] [facility] 2024-08-23 00:00:00 2024-08-23 00:00:00 Outpatient JEMMA CAMERON [id number] [facility] 2024-08-19 08:20:00 2024-08-19 08:20:00 Outpatient JEMMA CAMERON [id number] [facility] 2024-08-19 07:30:00 2024-08-19 07:30:00 Outpatient JEMMA CAMERON [id number] [facility] 2024-07-29 15:00:00 2024-07-29 15:00:00 Outpatient JEMMA CAMERON [id number] Jemma Seybold 2024-07-29 14:00:00 2024-07-29 14:00:00 Outpatient JEMMA CAMERON [id number] [facility] 2024-07-19 14:15:00 2024-07-19 14:15:00 Outpatient MAURY JAMES JEMMA CAMER[facility] [id number] [facility] 2024-07-19 00:00:00 2024-07-19 00:00:00 Outpatient HUNDL, KISHAN JEMMA CAMERON [id number] Jemma Mcmahonybashia 2024-07-19 00:00:00 2024-07-19 00:00:00 Outpatient HUNDL, KISHANChu CAMERON [id number] Jemma Mcmahonybold 2024-07-16 00:00:00 2024-07-16 00:00:00 Outpatient HUNDL, KISHAN CAMERON [id number] [facility] 2024-07-14 00:00:00 2024-07-14 00:00:00 Outpatient HUNDL, KISHAN JEMMA CAMERON [id number] [facility] 2024-07-12 14:15:00 2024-07-12 14:15:00 Outpatient LABYecenia JEMMA CAMERON [id number] [facility] 2024-07-12 13:30:00 2024-07-12 13:30:00 Outpatient HUNDL, KISHAN CAMERON [id number] [facility] 2024-07-08 08:00:00 2024-07-08 08:00:00 Outpatient HUNDL, KISHAN CAMERON [id number] [facility] 2024-07-05 16:00:00 2024-07-05 16:00:00 Outpatient HUNDL, KISHAN CAMERON [id number] [facility] 2024-07-01 09:00:00 2024-07-01 09:00:00 Outpatient HUNDL, KISHAN CAMERON [id number] Jemma Seybold 2024-06-07 00:00:00 2024-06-07 00:00:00 Outpatient HUNDL, KISHAN CAMERON [id number] Jemma Seybold 2024-06-07 00:00:00 2024-06-07 00:00:00 Outpatient HUNDL, KISHAN CAMERON [id number] Jemma Seybold 2024-05-23 00:00:00 2024-05-23 00:00:00 Outpatient PREZASKOSTA [id number] Jemma Seybold 2024-04-11 00:00:00 2024-04-11 00:00:00 Outpatient PREZASKOSTA [id number] Jemma Shaver 2024-04-04 00:00:00 2024-04-04 00:00:00 Outpatient KISHAN RICHARDSCÉSAR CAMERON [id number] Jemma Shaver 2024-03-26 08:30:00 2024-03-26 08:30:00 Outpatient MAURY JAMES JEMMA CAMERON [id number] Jemma Shaver 2024-03-25 00:00:00 2024-03-25 00:00:00 Outpatient KOSTA CUNNINGHAM JEMMA CAMERON [id number] Jemma Shaver 2024-03-13 00:00:00 2024-03-13 16:58:25 Patient Secure Msg Doctor Unassigned, [place] Doctor Unassigned, [place] [facility] MANAGER [facility] [id number] [facility] 2024-03-13 00:00:00 2024-03-13 00:00:00 Outpatient KISHAN RICHARDS JEMMA JEMMA [id number] Jemma Shaver 2024-03-05 00:00:00 2024-03-05 00:00:00 Outpatient KISHAN RICHARDS JEMMA CAMERON [id number] Jemma Shaver 2024-01-26 09:20:00 2024-01-26 09:20:00 Outpatient LAB90 JEMMA CAMERON [id number] Jemma Shaver 2024-01-26 08:00:00 2024-01-26 08:00:00 Outpatient MAURY JAMES JEMMA CAMERON [id number] Jemma Chhaya 2024-01-26 00:00:00 2024-01-26 00:00:00 Outpatient KOSTA CUNNINGHAM JEMMA CAMERON [id number] Jemma Chhaya 2024-01-25 11:30:00 2024-01-25 11:30:00 Outpatient MAURY JAMES JEMMA CAMERON [id number] Jemma Shaver 2024-01-24 00:00:00 2024-01-24 00:00:00 Outpatient [facility] [id number] [facility] 2024-01-23 08:00:00 2024-01-23 08:00:00 Outpatient MAURY JAMES JEMMA CAMERON [id number] Jemma Shaver 2024-01-18 08:15:00 2024-01-18 08:15:00 Outpatient MAURY JAMES JEMMA CAMERON [id number] Jemma Shaver 2024-01-17 00:00:00 2024-01-17 00:00:00 Outpatient HUNDL, KISHAN JEMMA CAMERON [id number] Jemma Mcmahonashia 2024-01-15 00:00:00 2024-01-15 00:00:00 Outpatient HUNDL, KISHAN CAMERON [id number] Jemma Mcmahonashia 2024-01-12 00:00:00 2024-01-12 00:00:00 Outpatient HUNDL, KISHAN CAMERON [id number] Jemma Shaver 2024-01-09 09:10:00 2024-01-09 09:10:00 Outpatient LAB90 JEMMA CAMERON [id number] [facility] 2024-01-09 08:00:00 2024-01-09 08:00:00 Outpatient HUNDL, KISHAN [facility] [id number] [facility] 2024-01-09 00:00:00 2024-01-09 00:00:00 Outpatient JEMMA CAMERON [id number] [facility] 2024-01-02 00:00:00 2024-01-02 00:00:00 Outpatient HUNDL, KISHAN [facility]EMMA CAMER[facility] [id number] [facility] 2024-01-01 00:00:00 2024-01-01 00:00:00 Outpatient PREZASKOSTA JEMMA CAMERON [id number] [facility] 2023-12-29 07:50:00 2023-12-29 07:50:00 Outpatient LAB90 JEMMA CAMERON [id number] [facility] 2023-12-26 00:00:00 2023-12-26 00:00:00 Outpatient PREZAS, KOSTA JEMMA CAMERON [id number] [facility] 2023-12-23 00:00:00 2023-12-23 00:00:00 Outpatient PREZASKOSTA JEMMA CAMERON [id number] Jemma Mcmahonybashia 2023-12-21 10:55:00 2023-12-21 10:55:00 Outpatient LAB90 JEMMA CAMERON [id number] Jemma Mcmahonybashia 2023-12-21 00:00:00 2023-12-21 00:00:00 Outpatient HUNDL, KISHAN CAMERON [id number] [facility] 2023-12-06 13:00:00 2023-12-06 13:00:00 Outpatient HUNDL, KISHAN CAMER[facility] [id number] [facility] 2023 08:00:00 2023 08:00:00 Outpatient HUNDL, KISHAN [facility]ER[facility] [id number] [facility] 2023-10-25 00:00:00 2023-10-25 00:00:00 Outpatient HUNDL, KISAHN CAMERON [id number] [facility] 2023-10-24 00:00:00 2023-10-24 00:00:00 Outpatient HUNDL, KISHAN CAMERON [id number] [facility] 2023-10-23 00:00:00 2023-10-23 00:00:00 Outpatient HUNDL, KISHAN CAMERON [id number] [facility] 2023-09-29 00:00:00 2023-09-29 00:00:00 Outpatient HUNDL, KISHAN CAMERON [id number] [facility] 2023-09-21 00:00:00 2023-09-21 00:00:00 Outpatient HUNDL, KISHAN CAMERON [id number] [facility] 2023-09-20 00:00:00 2023-09-20 00:00:00 Outpatient HUNDL, KISHAN CAMERON [id number] [facility] 2023-07-31 10:40:00 2023-07-31 10:40:00 Outpatient PALOMO FONTAINE [id number] Jemma Seybashai 2023-07-31 09:45:00 2023-07-31 09:45:00 Outpatient TOMOGRAPHY, KEVON CAMERON [id number] Jemma Seybold 2023-06-27 13:30:00 2023-06-27 13:30:00 Outpatient HUNDL, KISHAN CAMERON [id number] Jemma Seybold 2023-06-24 00:00:00 2023-06-24 00:00:00 Outpatient PREZAS, KOSTA CAMERON [id number] Jemma Seybold 2023-06-09 13:30:00 2023-06-09 13:30:00 Outpatient HUNDL, KISHAN CAMERON [id number] Jemma Seybold 2023-06-07 13:00:00 2023-06-07 13:00:00 Outpatient HUNDL, KISHAN CAMERON [id number] Jemma Seybold 2023-06-01 00:00:00 2023-06-01 00:00:00 Outpatient PREZAS, KOSTA CAMERON [id number] Jemma Seybold 2023-05-29 13:30:00 2023-05-29 13:30:00 Outpatient HUNDL, KISHAN CAMERON [id number] Jemma Seybold 2023-05-10 00:00:00 2023-05-10 00:00:00 Outpatient PREZAS, KOSTA CAMERON [id number] Jemma Seybold 2023-05-10 00:00:00 2023-05-10 00:00:00 Outpatient HUNDL, KISHAN CAMERON [id number] Jemma Seybold 2023-05-09 13:00:00 2023-05-09 13:00:00 Outpatient HUNDL, KISHAN CAMERON [id number] Jemma Seybold 2023-05-08 00:00:00 2023-05-08 00:00:00 Outpatient HUNDL, KISHAN CAMERON [id number] Jemma Seybold 2023-04-12 14:30:00 2023-04-12 14:30:00 Outpatient HUNDL, KISHAN CAMERON [id number] Jemma Seybold 2023-04-04 00:00:00 2023-04-04 00:00:00 Outpatient PREZAS, KOSTA CAMERON [id number] Jemma Mcmahonashia 2023-04-04 00:00:00 2023-04-04 00:00:00 Outpatient PREZAKOSTA Stewart JEMMA CAMERON [id number] Jemma Shaver 2023-04-03 00:00:00 2023-04-03 00:00:00 Outpatient HUNDL, KISHAN CAMERON [id number] Jemma Mcmahonashia 2023-03-31 00:00:00 2023-03-31 00:00:00 Outpatient HUNDL, KISHAN [facility] [id number] [facility] 2023-03-29 13:45:00 2023-03-29 13:45:00 Outpatient HEATHER PATIÑOS JUDY JEMMA CAMERON [id number] [facility] 2023-03-29 13:30:00 2023-03-29 13:30:00 Outpatient ROMERO KASHMIRJUDY BAC[id number] [facility]:00 2023-03-29 00:00:00 Outpatient PREZAKOSTA Stewart [facility] [id number] [facility] 2023-03-27 00:00:00 2023-03-27 00:00:00 Outpatient PREKOSTA PAZ JMEMA CAMERON [id number] [facility] 2023-03-24 09:40:00 2023-03-24 09:40:00 Outpatient GUANACO CAMERON [id number] [facility] 2023-03-24 00:00:00 2023-03-24 00:00:00 Outpatient HUNDJackie, KISHAN CAMERON [id number] [facility] 2023-03-24 00:00:00 2023-03-24 00:00:00 Outpatient HUNDL, KISHAN CAMERON [id number] [facility] 2023-03-24 00:00:00 2023-03-24 00:00:00 Outpatient HUNDJackie, KISHAN CAMER[facility] [id number] [facility] 2023-03-21 11:00:00 2023-03-21 11:00:00 Outpatient PREZASKOSTA JEMMA CAMERON [id number] [facility] 2023-03-21 11:00:00 2023-03-21 11:00:00 Outpatient KISHAN RICHARDS JEMMA CAMERON [id number] [facility] 2023-03-14 00:00:00 2023-03-14 00:00:00 Outpatient JUDY GREEN [id number] [facility] 2023-03-07 00:00:00 2023-03-07 00:00:00 Outpatient MAURICE, KISHAN JEMMA CAMERON [id number] [facility] 2023-03-07 00:00:00 2023-03-07 00:00:00 Outpatient HUNDL, KISHAN CAMERON [id number] [facility] 2023-03-06 00:00:00 2023-03-06 00:00:00 Outpatient MAURICE, KISHAN CAMERON [id number] [facility] 2023-03-02 00:00:00 2023-03-02 00:00:00 Outpatient MAURICE, KISHAN JEMMA CAMERON [id number] [facility] 2023-02-27 00:00:00 2023-02-27 00:00:00 Outpatient JUDY GREEN [id number] [facility] 2023-02-08 10:00:00 2023-02-08 10:00:00 Outpatient JUDY GREEN [id number] [facility] 2023-01-18 11:15:00 2023-01-18 11:15:00 Outpatient JUDY GREEN [id number] [facility] 2023-01-18 00:00:00 2023-01-18 00:00:00 Outpatient JUDY GREEN [id number] [facility] 2023-01-18 00:00:00 2023-01-18 00:00:00 Outpatient JUDY GREEN [id number] [facility] 2023-01-04 11:15:00 2023-01-04 11:15:00 Outpatient JUDY GREEN [facility] [id number] [facility]23-01-03 08:00:00 2023-01-03 08:00:00 Outpatient JUDY GREEN JEMMA CAMERON [id number] [facility] 2023-01-03 05:21:00 2023-01-03 05:21:00 Outpatient Judy Green [facility] [id number] [address] [place] [address] 2023-01-03 00:00:00 2023-01-03 00:00:00 Outpatient HEATHER MARLOW JUDY JEMMA CAMERON [id number] [facility] 2022-12-29 00:00:00 2022-12-29 00:00:00 Outpatient JUDY GREEN JEMMA CAMERON [id number] [facility] 2022-12-29 00:00:00 2022-12-29 00:00:00 [facility]patient [facility] [id number] [facility]:00 2022-12-29 00:00:00 Outpatient JUDY GREEN JEMMA CAMERON [id number] [facility] 2022-12-28 14:45:00 2022-12-28 14:45:00 Outpatient JUDY GREEN [facility] [id number] [facility]22-12-26 00:00:00 2022-12-26 00:00:00 Outpatient KOSTA CUNNINGHAM [id number] [facility] 2022-12-20 00:00:00 2022-12-20 00:00:00 Outpatient KOSTA CUNNINGHAM [id number] [facility] 2022-12-19 09:15:00 2022-12-19 09:15:00 Outpatient GUANACO CAMERON [id number] [facility] 2022-12-19 08:30:00 2022-12-19 08:30:00 Outpatient KOSTA CUNNINGHAM [id number] [facility] 00:00:00 2022-11-29 00:00:00 Outpatient JEMMA CAMERON [id number] [facility] 2022-11-22 08:00:00 2022-11-22 08:00:00 Outpatient MAURICE KISHAN CAMERON [id number] [facility] 2022-11-14 10:00:00 2022-11-14 10:00:00 Outpatient MAURICE KISHAN CAMERON [id number] [facility] 2022-11-07 00:00:00 2022-11-07 00:00:00 Outpatient HEATHER MARLOWJUDY [id number] [facility] 2022-10-18 00:00:00 2022-10-18 00:00:00 Outpatient LUISJackie KISHAN CAMERON [id number] [facility] 2022-10-12 00:00:00 2022-10-12 00:00:00 Outpatient SHASHANKRIANATerryKOSTA [id number] [facility] 2022-10-04 10:00:00 2022-10-04 10:00:00 Outpatient MAURICE KISHAN CAMERON [id number] [facility] 2022-10-02 00:00:00 2022-10-02 00:00:00 Outpatient KOSTA CUNNINGHAM JEMMA CAMERON [id number] [facility] 2022-10-02 00:00:00 2022-10-02 00:00:00 Outpatient MAURICE KISHAN CAMERON [id number] [facility] 2022-09-29 00:00:00 2022-09-29 00:00:00 Outpatient MAURICE KISHAN CAMERON [id number] [facility] 2022-09-29 00:00:00 2022-09-29 00:00:00 Outpatient MD JEMMA PADILLA [id number] [facility] 2022-09-28 00:00:00 2022-09-28 00:00:00 Outpatient KISHAN RICHARDS [id number] [facility] 2022-09-26 00:00:00 2022-09-26 00:00:00 Outpatient MD JEMMA PADILLA [id number] [facility] 2022-09-23 08:15:00 2022-09-23 08:15:00 Outpatient MAURY JAMES [facility] CAMER[facility] [id number] [facility] 2022-09-23 08:05:00 2022-09-23 08:05:00 Outpatient MARCIA90 JEMMA CAMERON [id number] [facility] 2022-09-23 00:00:00 2022-09-23 00:00:00 Outpatient MAURICE KISHAN [facility] CAMER[facility] [id number] [facility] 2022-09-23 00:00:00 2022-09-23 00:00:00 Outpatient MAURICE KISHAN CAMERON [id number] [facility] 2022-09-22 00:00:00 2022-09-22 00:00:00 Outpatient MAURICE KISHAN CAMERON [id number] [facility] 2022-09-18 00:00:00 2022-09-18 00:00:00 Patient Secure Msg Doctor Unassigned, [place] [facility] 1..840.114 350.1.13.10 4.2.7.2.686 [id number] [facility] 2022-09-16 12:22:00 2022-09-17 13:33:00 Outpatient X STEVENSON GAVIRIA [facility] [id number] [facility] 2022-09-16 12:22:00 2022-09-17 13:33:00 Hospital Encounter Heather Tipton David Lakhani, Adnan [facility] 1..840.114 350.1.13.10 4.2.7.2.686 [id number] [facility] 2022-09-17 00:00:00 2022-09-17 00:00:00 Outpatient MAURICE KISHAN CAMERON [id number] [facility] 2022-09-17 00:00:00 2022-09-17 00:00:00 Outpatient ROMERO KASHMIR, JUDY CAMERON [id number] [facility] 2022-09-17 00:00:00 2022-09-17 00:00:00 Outpatient KISHAN RICHARDS [facility] [id number] [facility]:00:00 2022-09-16 00:00:00 Outpatient ROMEROChu PATIÑOJUDY Stewart [id number] [facility] 2022-09-16 00:00:00 2022-09-16 00:00:00 Outpatient MD JEMMA PADILLA [id number] [facility] 2022-09-15 09:45:00 2022-09-15 09:45:00 Outpatient ROMERO KASHMIRJUDY BACON [id number] [facility] 2022-09-15 09:30:00 2022-09-15 09:30:00 Outpatient ROMERO KASHMIRJUDY BACON [id number] [facility] 2022-09-11 00:00:00 2022-09-11 00:00:00 Outpatient MAURICE KISHAN JEMMA CAMERON [id number] [facility] 2022-08-22 09:15:00 2022-08-22 09:15:00 Outpatient LABYecenia JEMMA CAMERON [id number] [facility] 2022-08-22 08:30:00 2022-08-22 08:30:00 Outpatient LUISJackie KISHAN JEMMA CAMERON [id number] [facility] 2022-08-17 13:15:00 2022-08-17 13:15:00 [facility] [id number] [facility] 00:00:00 2022-08-17 00:00:00 Outpatient KISHAN RICHARDS [id number] [facility] 2022-08-01 08:30:00 2022-08-01 08:30:00 Outpatient JUDY GREEN [id number] [facility] 2022-07-20 00:00:00 2022-07-20 00:00:00 Orders Only Doctor Unassigned, [place] [facility] 1.2.840.114 350.1.13.10 4.2.7.2.686 [id number] [facility] 2022-07-17 00:00:00 2022-07-17 00:00:00 Outpatient HUNDL, KISHAN CAMERON [id number] [facility] 2022-07-15 00:00:00 2022-07-15 00:00:00 Outpatient HUNDL, KISHAN CAMERON [id number] [facility] 2022-07-01 00:00:00 2022-07-01 00:00:00 Outpatient HUNDL, KISHAN CAMERON [id number] [facility] 2022-07-01 00:00:00 2022-07-01 00:00:00 Outpatient HUNDL, KISHAN CAMERON [id number] [facility] 2022-06-27 09:20:00 2022-06-27 09:20:00 Outpatient LAB90 JEMMA CAMERON [id number] [facility] 2022-06-27 08:30:00 2022-06-27 08:30:00 Outpatient HUNDL, IKSHAN CAMERON [id number] [facility] 2022-06-23 00:00:00 2022-06-23 00:00:00 Outpatient HUNDL, KISHAN CAMERON [id number] [facility] 2022-06-22 08:30:00 2022-06-22 08:30:00 Outpatient HUNDL, KISHAN CAMERON [id number] [facility] 2022-06-13 00:00:00 2022-06-13 00:00:00 Outpatient PREZAS, KOSTA CAMERON [id number] [facility] 2022-06-10 00:00:00 2022-06-10 00:00:00 Outpatient HUNDL, KISHAN CAMERON [id number] [facility] 2022-06-08 00:00:00 2022-06-08 00:00:00 Outpatient HUNDL, KISHAN CAMERON [id number] Shaver 2022-06-04 00:00:00 2022-06-04 00:00:00 Outpatient HUNDKISHAN Mejia JEMMA CAMERON [id number] [facility] 2022-06-03 14:00:00 2022-06-03 14:00:00 Outpatient HUNDKISHAN Mejia JEMMA CAMERON [id number] [facility] 2022-06-03 00:00:00 2022-06-03 00:00:00 Outpatient HUNDKISHAN Mejia [facility] [id number] [facility] 2022-05-26 00:00:00 2022-05-26 00:00:00 Outpatient PREZAKOSTA Stewart [facility] [id number] [facility] 2022-05-26 00:00:00 2022-05-26 00:00:00 Outpatient HUNDKISHAN Mejia [facility]MA CAMER[facility] [id number] [facility] 2022-05-25 09:10:00 2022-05-25 09:10:00 Outpatient LAB90 JEMMA CAMERON [id number] [facility] 2022-05-25 08:00:00 2022-05-25 08:00:00 Outpatient HUNDJackie, KISHAN [facility] [id number] [facility] 2022-05-25 00:00:00 2022-05-25 00:00:00 Outpatient KISHAN RICHARDS JEMMA CAMERON [id number] [facility] 2022-05-23 00:00:00 2022-05-23 00:00:00 Outpatient MD JEMMA PADILLA [id number] [facility] 2021-10-06 00:00:00 2021-10-06 00:00:00 Patient Secure Msg Perdomo [facility] 1.2.840.114 350.1.13.10 4.2.7.2.686 [id number] [facility] 2021-10-06 00:00:00 2021-10-06 00:00:00 [facility] 1.2.840.114 350.1.13.10 4.2.7.2.686 [id number] [facility] 2021-10-06 00:00:00 2021-10-06 00:00:00 [facility] 1.2.840.114 350.1.13.10 4.2.7.2.686 [id number] [facility] 2021-10-05 00:00:00 2021-10-05 00:00:00 Neelima [facility] 1.2.840.114 350.1.13.10 4.2.7.2.686 [id number] [facility] 2021-09-27 00:00:00 2021-09-27 00:00:00 [facility] 1..840.114 350.1.13.10 4.2.7.2.686 [id number] [facility] 2021-08-02 10:20:00 2021-08-02 10:20:00 Outpatient R NEELIMA PERDOMO [facility] [id number] [facility] 2021-07-29 09:30:00 2021-07-29 09:30:00 Outpatient R NEELIMA PERDOMO [facility] [id number] [facility] 2021-07-26 00:00:00 2021-07-26 00:00:00 Patient Secure g [facility] 1.2.840.114 350.1.13.10 4.2.7.2.686 [id number] [facility] 2021-07-26 00:00:00 2021-07-26 00:00:00 [facility] 1.2.840.114 350.1.13.10 4.2.7.2.686 [id number] [facility] 2021-07-21 15:00:00 2021-07-21 15:00:00 Outpatient R TIMOTHY ESPINOSA [facility] [id number] [facility] 2021-07-20 16:30:00 2021-07-20 17:09:07 [facility] 1.2.840.114 350.1.13.10 4.2.7.2.686 [id number] [facility] 2021-07-20 16:30:00 2021-07-20 17:09:07 Outpatient R NEELIMA PERDOMO [facility] [id number] [facility] 2021-07-02 11:30:00 2021-07-02 11:52:56 Outpatient R NEELIMA PERDOMO [facility] [id number] [facility] 2021-06-29 09:30:00 2021-06-29 09:30:00 Outpatient R MONICA CRESPO [facility] [id number] [facility] 2021-06-24 09:00:00 2021-06-24 10:14:02 Outpatient R NEELIMA PERDOMO [facility] [id number] [facility] 2021-06-24 00:00:00 2021-06-24 00:00:00 Orders Only Doctor Unassigned, [place] [facility] 1.2.840.114 350.1.13.10 4.2.7.2.686 [id number] [facility] 2021-06-21 09:00:00 2021-06-21 09:00:00 Outpatient R NEELIMA PERDOMO [facility] [id number] [facility] 2021-05-07 16:12:00 2021-05-07 17:24:00 Emergency Raulito Medina [facility] 1.2.840.114 350.1.13.10 4.2.7.2.686 [id number] [facility] 2021-05-07 16:12:00 2021-05-07 17:24:00 Emergency X RAULITO MEDINA [facility] ERT [id number] [facility] 2018-11-03 03:10:00 2018-11-03 03:10:00 Emergency E [facility] 7506 [facility] 2018-10-24 20:37:00 2018-10-24 20:37:00 Emergency E [facility]FB FB [id number] [facility] Results Test Description Test Time Test Comments Results Result Co mments Source GLUCOSE [id number] 10:18:00* Test Item Value Reference Range Interpretation Comme nts GLUCOSE BEDSIDE (test code = GLUBED) 174 MG/DL 70-110 H Performed by cer tonio roaster operator at [facility] BASIC METABOLIC [id number] 07:54:00* Test Item Value Reference Range Interpretation Comme nts SODIUM (test code = NA) 140 mEq/L 134-147 N POTASSIUM (test code = K) 3.8 mEq/L 3.4-5.0 N CHLORIDE (test code = CL) 105 mEq/L 100-108 N CARBON DIOXIDE (test code = CO2) 31 mEq/l 21-33 N ANION GAP (test code = GAP) 8 0-20 N GLUCOSE (test code = GLU) 104 mg/dL 77-141 N NOTE: NEW NORMAL RANGE BLOOD UREA NITROGEN (test code = BUN) 14 mg/dL 7-25 N NOTE: NEW NORM AL RANGE GLOMERULAR FILTRATION RATE (test code = GFR) 109.3 95-105 H The Glomerular Filtration Rate is a calculated parameterbased on serum Creatinine, patient age and sex. GFR valuesless than 60 mL/min/1.73 square meters are indicative ofChronic Kidney Disease. Values less than 15 mL/min/1.73square meters indicate Kidney failure. The calculation forGFR is based on the CKD-EPI (2020) calculation. This formulais race indifferent and is the recommended formula for GFRby the National Kidney Foundation for Adults.The GFR will not calculate if the sex is unknown or if thepatient's age is <18 years. CREATININE (test code = CREAT) 0.7 mg/dL 0.6-1.3 N CALCIUM (test code = CA) 8.8 mg/dL 8.0-10.5 N GLUCOSE [id number] 07:35:00* Test Item Value Reference Range Interpretation Comme nts GLUCOSE BEDSIDE (test code = GLUBED) 103 MG/DL 70-110 N Performed by cer tified roaster operator at [facility] [id number] 13:02:00* Test Item Value Reference Range Interpretation Comme nts CREATININE (test code = CREAT) 0.8 mg/dL 0.6-1.3 N HCG SERUM [id number] 12:59:00* Test Item Value Reference Range Interpretation Comme nts HCG SERUM QUAL (test code = HCGQL) SERUM NEGATIVE NEGATIVE PROTHROMBIN [id number] 12:50:00* Test Item Value Reference Range Interpretation Comme nts PROTHROMBIN TIME PATIENT (test code = PTP) 11.9 SECONDS 9.3-12.9 N INTERNATIONAL NORMAL RATIO (test code = INR) 1.1 0.8-1.2 N TARGET INR BY INDICATION Indication INR1. Prophylaxis of venous thrombosis 2.0 - 3.0 (orthopedic surgery), Prophylaxis of venous thrombosis (other than high-risk surgery), Treatment of Deep Vein Thrombosis/Pulmonary Embolism, Prevention of systemic embolism - Tissue heart valves, Acute Myocardial Infarction (to prevent systemic embolism), Valvular heart disease, Atrial Fibrillation, Bileaflet mechanical valve in aortic position.2. Mechanical prosthetic valves (high risk), 2.5 - 3.5 Presence of Lupus Anticoagulant or Antiphospholipid Antibodies, Prevention of systemic embolism - Acute Myocardial Infarction (to prevent recurrent infarct). THROMBOPLASTIN TIME [id number] 12:50:00* Test Item Value Reference Range Interpretation Comme [facility] THROMBOPLASTIN TIME PARTIAL (test code = PTT) 31.0 Seconds 25.0-39.5 N Therapeutic Rang e: 50.4 - 88.3 Seconds Effective 08/07/2018 CBC W/AUTO [id number] 12:43:00* Test Item Value Reference Range Interpretation Comme [facility] WHITE BLOOD CELL (test code = WBC) 6.4 x10 3/uL 4.5-11.0 N RED BLOOD CELL (test code = RBC) 4.93 x10 6/uL 3.54-5.02 N HEMOGLOBIN (test code = HGB) 12.2 g/dL 11.0-15.0 N HEMATOCRIT (test code = HCT) 40.0 % 33.0-45.0 N MEAN CELL VOLUME (test code = MCV) 81.1 fL 81.0-99.0 N MEAN CELL HGB (test code = MCH) 24.7 pg 27.0-33.0 L MEAN CELL HGB CONCETRATION (test code = MCHC) 30.5 g/dL 33.0-37.0 L RED CELL DISTRIBUTION WIDTH CV (test code = RDW) 15.0 % 11.5-14.5 H RED CELL DISTRIBUTION WIDTH SD (test code = RDW-SD) 44.1 fL 37.0-54.0 N PLATELET COUNT (test code = PLT) 357 x10 3/uL 150-400 N MEAN PLATELET VOLUME (test c ode = MPV) 9.9 fL 7.0-9.0 H NEUTROPHIL % (test code = NT%) 55.9 % 56.0-77.0 L IMMATURE GRANULOCYTE % (test code = IG%) 0.3 % 0.0-2.0 N LYMPHOCYTE % (test code = LY%) 32.0 % 14.0-32.0 N MONOCYTE % (test code = MO%) 6.6 % 4.8-9.0 N EOSINOPHIL % (test code = EO%) 4.4 % 0.3-3.7 H BASOPHIL % (test code = BA%) 0.8 % 0.0-2.0 N NUCLEATED RBC % (test code = NRBC%) 0.0 % 0-0 N NEUTROPHIL # (test code = NT#) 3.57 x10 3/uL 2.0-7.6 N IMMATURE GRANULOCYTE # (test code = IG#) 0.02 x10 3/uL 0.00-0.03 N LYMPHOCYTE # (test code = LY#) 2.04 x10 3/uL 1.0-3.8 N MONOCYTE # (test code = MO#) 0.42 x10 3/uL 0.1-0.8 N EOSINOPHIL # (test code = EO#) 0.28 x10 3/uL 0.0-0.2 H BASOPHIL # (test code = BA#) 0.05 x10 3/uL 0.0-0.2 N NUCLEATED RBC # (test code = NRBC#) 0.00 x10 3/uL 0.0-0.1 N MANUAL DIFF REQUIRED (test c ode = MDIFF) NO POCT GLUCOSE (AUTOMATED)2022-09-17 16:25:20* Test Item Value Reference Range Interpretation Comme [facility] POCT GLU (test code = 7539443756) 216 mg/dL 70-110 H Lab Interpretation (test cod e = 30419-5) [facility]22-[facility]17 12:28:49* Test Item Value Reference Range Interpretation Comme [facility] POCT GLU (test code = 6776006458) 118 mg/dL 70-110 H Lab Interpretation (test cod e = 46881-3) [facility]normal [facility] (13835)(TOTAL CHOLESTEROL, TRIGLYCERIDES, HDL)2022-09-17 09:45:18* Test Item Value Reference Range Interpretation Comme nts CHOL (test code = 2523141650) 227 mg/dL 120-200 H HDL (test code = 3584875034) 44 mg/dL >=50 L HDLC RATIO (test code = 2365425905) 5.2 <=4.5 H TRIG (test code = 9449831508) 109 mg/dL 30-170 LDL CHOL (test code = 34375-5) 161 mg/dL <=160 H VLDL (test code = 4357305930) 22 mg/dL 5-60 Lab Interpretation (test cod e = 17862-5) Abnormal [facility] [id number] 05:49:54* Test Item Value Reference Range Interpretation Comme nts TROPONIN I (test code = 5735014904) <=0.034 KAN (test code = KAN) Reference (Normal) Range (defined by the 99th percentile reference limit): <= 0.034 ng/mL Note: Cardiac troponin begins to rise 3-4 hours after the onset of ischemia. Repeat in 4-6 hours if the sample was drawn within 3-4 hours of the onset of the symptom and found normal. Diagnosis of myocardial injury is made with acute changes in cTn concentrations with at least one serial sample above the 99th percentile upper reference limit (URL), taken together with the patient's clinical presentation. Biotin has been reported to cause a negative bias, interpret results relative to patient's use of biotin. Lab Interpretation (test code = 95318-1) Normal [facility]GLOB[facility] (A1C)2022-09-17 04:25:56* Test Item Value Reference Range Interpretation Comme nts HGB A1C (test code = 4548-4) 6.4 % 4.0-5.7 H KAN (test code = KAN) Reference RangesNormal: <5.7%Prediabetes: 5.7 - 6.4%Diabetes: > 6.5% Lab Interpretation (test code = 06923-1) Abnormal [facility] GLUCOSE (AUTOMATED)2022-09-17 04:03:47* Test Item Value Reference Range Interpretation Comme [facility] POCT GLU (test code = 0865085130) 160 mg/dL 70-110 H Lab Interpretation (test cod e = 27522-8) Abnormal [facility] GLUCOSE (AUTOMATED)2022-09-17 00:53:20* Test Item Value Reference Range Interpretation Comme [facility] POCT GLU (test code = 7723973071) 189 mg/dL 70-110 H Lab Interpretation (test cod e = 73894-6) Abnormal [facility]OL[facility] PAN[facility] (10202)2022-09-16 18:02:34* Test Item Value Reference Range Interpretation Comme nts NA (test code = 0084772995) 139 mmol/L 135-145 K (test code = 4443518710) 4.2 mmol/L 3.5-5.0 CL (test code = 1869012279) 106 mmol/L 98-108 CO2 TOTAL (test code = 1453779700) 21 mmol/L 23-31 L AGAP (test code = 4012515102) 12 2-16 BUN (test code = 5761619702) 16 mg/dL 7-23 GLUCOSE (test code = 1007167901) 137 mg/dL 70-110 H CREATININE (test code = 6123582540) 0.81 mg/dL 0.50-1.04 TOTAL BILI (test code = 3510314556) 0.6 mg/dL 0.1-1.1 CALCIUM (test code = 0416603568) 9.7 mg/dL 8.6-10.6 T PROTEIN (test code = 4253613321) 7.6 g/dL 6.3-8.2 ALBUMIN (test code = 2908572805) 4.4 g/dL 3.5-5.0 ALK PHOS (test code = 2039145822) 102 U/L 34-122 ALTv (test code = 1742-6) 16 U/L 5-35 AST(SGOT) (test code = 4091933796) 17 U/L 13-40 eGFR (test code = 5134768573) 77.2 mL/min/1.73m2 KAN (test code = KAN) Association of Glomerular Filtration Rate (GFR) and Staging of Kidney Disease* + --+ --+ ------+| GFR (mL/min/1.73 m2) ?| With Kidney Damage ?| ?Without Kidney Damage+ --------+ --------+ +| ?>90 ?| ?Stage one ?| ? Normal ?+ ---+ ---+ -------+| ?60-89 ?| ?Stage two ?| ? Decreased GFR ? + --+ --+ ------+| ?30-59 ?| ?Stage three ?| ? Stage three ? + --+ --+ ------+| ?15-29 ?| ?Stage four ? | ? Stage four ?+ ---+ ---+ -------+| ?<15 (or dialysis) ? ?| ?Stage five ? | ? Stage five ?+ ---+ ---+ -------+ *Each stage assumes the associated GFR level has been in effect for at least three months. ?Stages 1 to 5, with or without kidney disease, indicate chronic kidney disease. Notes: Determination of stages one and two (with eGFR >59mL/min/1.73 m2) requires estimation of kidney damage for at least three months as defined by structural or functional abnormalities of the kidney, manifested by either:Pathological abnormalities or Markers of kidney damage (including abnormalities in the composition of the blood or urine or abnormalities in imaging tests). Lab Interpretation (test code = 27958-1) Abnormal [facility] WITH [id number] 17:48:13* Test Item Value Reference Range Interpretation Comme nts WBC (test code = 6690-2) 8.86 See_Comment [Automated messa ge] The system which generated this result transmitted reference range: 4.30 - 11.10 10*3/?L. The reference range was not used to interpret this result as normal/abnormal. RBC (test code = 789-8) 5.30 See_Comment H [Automated messa ge] The system which generated this result transmitted reference range: 3.93 - 5.25 10*6/?L. The reference range was not used to interpret this result as normal/abnormal. HGB (test code = 718-7) 12.1 g/dL 11.6-15.0 HCT (test code = 4544-3) 38.9 % 35.7-45.2 MCV (test code = 787-2) 73.4 fL 80.6-95.5 L MCH (test code = 785-6) 22.8 pg 25.9-32.8 L MCHC (test code = 786-4) 31.1 g/dL 31.6-35.1 L RDW-SD (test code = 88299-3) 50.4 fL 39.0-49.9 H RDW-CV (test code = 788-0) 19.9 % 12.0-15.5 H PLT (test code = 777-3) 406 See_Comment H [Automated messa ge] The system which generated this result transmitted reference range: 166 - 358 10*3/?L. The reference range was not used to interpret this result as normal/abnormal. MPV (test code = 17387-2) 10.2 fL 9.5-12.9 NRBC/100 WBC (test code = 8162630993) 0.0 See_Comment [Automated ADINCON ssage] The system which generated this result transmitted reference range: 0.0 - 10.0 /100 WBCs. The reference range was not used to interpret this result as normal/abnormal. NRBC x10^3 (test code = 9549519826) See_Comment [Automated messa ge] The system which generated this result transmitted reference range: 10*3/?L. The reference range was not used to interpret this result as normal/abnormal. GRAN MAT (NEUT) % (test code = 770-8) 62.9 % IMM GRAN % (test code = 2253277528) 0.20 % LYMPH % (test code = 736-9) 27.4 % MONO % (test code = 5905-5) 5.9 % EOS % (test code = 713-8) 2.8 % BASO % (test code = 706-2) 0.8 % GRAN MAT x10^3(ANC) (test code = 1732915489) 5.57 10*3/uL 1.88-7.09 IMM GRAN x10^3 (test code = 5503105358) 0.00-0.06 LYMPH x10^3 (test code = 731-0) 2.43 10*3/uL 1.32-3.29 MONO x10^3 (test code = 742-7) 0.52 10*3/uL 0.33-0.92 EOS x10^3 (test code = 711-2) 0.25 10*3/uL 0.03-0.39 BASO x10^3 (test code = 704-7) 0.07 10*3/uL 0.01-0.07 Lab Interpretation (test code = 45998-0) [facility]normal [facility] 2022-08-01 00:00:00* Test Item Value Reference Range Interpretation Comme nts TEST RESULT (test code = 441364) Negative Neg. - Pos. Internal Positive Control (t est code = 3223) Positive Jemma Shaver - External History and Physical Notes Date/Time Note Provider Source 2022-12-19 08:30:00 Formatting of this n ote is different from the original. Images from the original note were not included. Subjective: Patient presents for preop. Patient to have hysterectomy on January 03, [address] Marlow due to menorrhagia and fibroids. Had anaphylaxis with DepoProvera recently 09/16/2022. History of IV iron infusion in the past due to Iron def anemia. Recent lab: Lab 08/2022: A1c 7.1 CBC unremarkable Lab 05/25/2022: Total Cholesterol 107.00 - 218.00 mg/dL 244.00?H? Triglycerides 47.03 - 158.92 mg/dL 83.00 HDL Cholesterol 36.24 - 104.82 mg/dL 73.00 LDL Cholesterol Calculation 0 - 119 mg/dl 154?H? Recent pelvic ultrasound: 08/01/2022: FINDINGS: Transabdominal and EV pelvic ultrasound was acquired.? The uterus is anteverted and measures 9.1 x 4.7 x 5.6 cm. The cervix is unremarkable. There is a 0.2 x 0.5 x 0.7 cm anterior fundal fibroid. The myometrium is slightly heterogeneous with no other discrete fibroids.? The right ovary measures 2.9 x 1.3 x 1.9 cm and demonstrates a 1.4 x 0.6 x 0.8 cm dominant follicle.? The left ovary measures 2 x 1.9 x 1.2 cm with normal with a small shadowing calcification without an associated mass. IMPRESSION:? 1. Small uterine fibroids as described above. Heterogeneous myometrium. 2. Dominant follicle in the right ovary. 3. Nonspecific calcification in the left ovary. Past medical history: Hypertension Diabetes type 2 with hyperlipidemia Hypothyroidism Iron deficiency anemia Uterine fibroids Current medications: Metformin 500 mg twice daily Trulicity 4.5 subcu q. Weekly Levothyroxine 125 mcg daily Losartan 25 mg daily Hydrochlorothiazide 12.5 mg daily Iron every week Vitamin D once daily control daily Surgical history: Cholecystectomy Tonsillectomy Family history: Mother and father without major medical problems Social history: Non-smoker, alcohol-occasionally General: Alert, cooperative, oriented x3. HEENT: Head atraumatic. Extraocular movements intact. Ears unremarkable. Nares patent. Oropharynx moist. Dentition appears normal. Neck: Supple. No thyromegaly. Heart: Regular rate and rhythm. No murmurs. Lungs: Clear to auscultation bilateral. Abdomen: Soft, nontender, nondistended. Pain noted. Extremities: Good range of motion. No focal deficits. Skin: Normal skin turgor. Skin appears dry. Neuro: No focal deficits. Mental: Patient appears in good mood. Patient interactive and appropriate. Impression: Preop exam for hysterectomy Menorrhagia/fibroids Hypertension-controlled Diabetes type 2 with mixed hyperlipidemia-controlled Hypothyroidism-controlled Iron deficiency anemia-controlled Vitamin D deficiency-controlled Plan: Preop: Patient medically cleared for surgery. Patient to have surgery in January 03 with CASINO MANAGER-Dr. Marlow. I will this information to him. Hypertension: Controlled. Continue with medication. Medication reviewed and updated. Diabetes/hyperlipidemia: Controlled. Medication reviewed and updated. Her arthrosclerotic cardiovascular disease 10-year risk score is 1.3%. This is considered low risk. Obtain lab to monitor her diabetes. Iron deficiency anemia: Patient taking iron supplementation weekly. Check lab to monitor her status. Patient has received IV iron in the past. Hypothyroidism: Controlled. Medication reviewed and updated. Vitamin D: Discontinue vitamin D supplementation 50,000 units every week. Will transition to 2000 units daily. [facility] Notes Date/Time Note Provider Source 2024-08-23 09:26:11 Chief Complaint Patient presents with Follow-up Follow up on weight management Chantelle Stack MA [facility] 2024-07-12 13:01:40 Chief Complaint Patient presents with Diabetes Diabetic follow up Chantelle Stack MA [facility] 2024-01-09 07:52:33 Chief Complaint Patient presents with Follow-up Follow up on Mounjaro and lab results Chantelle Stack MA II [facility] 2023-06-07 13:02:09 Chief Complaint Patient presents with Follow-up Follow up on blood work Chantelle Stack MA II [facility] 2023-01-03 10:08:00 [facility] ([facility]) Operative Note REPORT#:[id number] REPORT STATUS: Signed DATE:01/03/23 TIME: 1008 PATIENT: VONDA ZAFAR UNIT #: [id number] ROOM/BED: : 78 AGE: 42 SEX: F ATTEND: Judy Green MD ADM AUTHOR: Judy Green MD * ALL edits or amendments must be made on the electronic/computer document * Operative Report Operative Note Note: ROBOTIC HYSTERECTOMY PROCEDURE NOTE Date: 01/03/2023 Surgeon: Judy Vázquez MD Physician Asst surgeon: Justyna Renteria LSA is medically necessary to provide patient care bedside while surgeon is operating on robotic console. This includes manipulation of uterus, suction, retraction, changing robotic instruments, and passing suture. Hospital does not provide a surgical oncologist. Anesthesia: General Specimens: Uterus with cervix, bilateral fallopian tubes, bilateral ovaries Findings: normal appearing uterus, normal appearing tubes, normal appearing ovaries with right ovarian cyst. No adhesions noted. Specimen weighed 207g Indication: This is a patient with a history of AUB who has completed childbearing, so she was brought to the OR for robotic TLH. Patient strongly desired her ovaries removed to reduce risk of cancer and understood the risks/ side effects of having ovaries removed prior to menopause. The patient understood risks, benefits and alternatives to the procedure, and informed consent was signed. All questions were answered prior to the procedure. Narrative: After obtaining informed consent, patient was taken to the OR for above planned procedures. 2g Ancef were administered at the start of the case. She was prepped and draped in the normal sterile fashion in the dorsal lithotomy position using Yellow Fin stirrups. Zimmer catheter was placed. Cervix was visualized using weighted speculum and tutu, and Deborah manipulator was placed. Attention was then turned to the abdomen. Local anesthesia was injected prior to incisions and at the end of the case after incisional closures. At umbilicus, with OG tube to suction, an 8 mm trochar and camera were inserted. Findings as noted above. Under direct visualization, two additional 8 mm robotic ports were placed bilaterally 8 cm lateral to the umbilicus. An additional 8 mm Airseal assistant banquet manager port was placed superiorly to the robotic ports. At this point, the Codesioni Robot was docked. Bilateral ureters were visualized prior to initiating procedure. Using robotic vessel sealer device, the infundibulopelvic ligament was identified on each side , and bilateral salpingo-oophorectomy was performed. Then, hysterectomy was initiated by taking down the round ligaments bilaterally and dissecting apart the anterior and posterior leaves of the broad ligament. Then, using PK forceps and monopolar hook, a bladder flap was then developed. The bladder peritoneum was reflected from the anterior uterus and extended bilaterally. Bilateral uterine arteries were skeletonized, cauterized, and ligated. The uterus was amputated, and the uterus with cervix, bilateral fallopian tubes, and ovaries were removed en-bloc from the pelvis and sent to pathology. The cuff was then closed with continuous running V-lock suture. The assistant banquet manager s fingers noted that the cuff was closed and hemostatic. Cystoscopy was then performed with 30 degree cystoscope, and bilateral ureteral efflux was noted. No sutures or defects noted in bladder. Pelvis was irrigated copiously with warm saline. Intraabdominal pressure was decreased to 5 mmHg, and hemostasis was noted in the pelvis and at the pedicles. Remainder of trochars were removed under direct visualization with evacuation of pneumoperitoneum. Skin was re-approximated with running 3-0 Monocryl suture, and Dermabond and steristrips were applied. All lap and instrument counts were complete x 2. The procedure was considered terminate at this time. Condition of Patient after Surgery: Good Estimated Blood Loss: 25 cc Urine Output: 700 cc Intravenous fluid 700 cc Lactated Ringers Complications: none at 1013 [facility] #:[id number] END OF REPORT [facility] 2022-12-30 12:38:00 [id number] [address] PATIENT NAME: VONDA ZAFAR ADMIT DATE: ACCOUNT NO: [id number] ROOM NO: AGE: 42 REPORT TYPE: eELECTROCARDIOGRAM REPORT SEX: F ADMITTING PHYSICIAN: ATTENDING PHYSICIAN:Judy Green MD Order: [id number] Test Reason : PRE OP Test Date/Time Stamp: MonDec 30 2022 12:38:34 Blood Pressure : / mmHG Vent. Rate : 060 BPM Atrial Rate : 060 BPM P-R Int : 134 ms QRS Dur : 086 ms QT Int : 412 ms P-R-T Axes : 050 -24 037 degrees QTc Int : 412 ms Normal sinus rhythm Leftward axis Poor R wave progression in chest leads - possible lead placement error Abnormal ECG PRE_OP Confirmed by MAGALI SYLVESTER MD ([id number]) on 12/30/2022 12:59:42 PM Referred By: Judy Marlow Confirmed by:MAGALI SYLVESTER MD at 1259 PATIENT NAME: VONDA ZAFAR [facility] 2022-12-28 14:21:51 Formatting of this n ote is different from the original. Chief Complaint Patient presents with Pre-Op Exam Da Mini Ortiz w/BL Salp MICHELLE Canchola II [facility] 2022-12-19 07:56:05 Formatting of this n ote might be different from the original. Patient is having a hysterectomy with a [facility] provider on January 03, she is here for surgical clearance T [facility]"
--- NOTE | 2024-09-15 11:06 | RAD REPORT ---
EXAM: CT Ct Stroke Brain Wo Cont HISTORY: STROKE ALERT COMPARISON: None TECHNIQUE: Multiple contiguous axial images were obtained for a CT of the brain without contrast. Sag ittal and coronal reformats were performed. One or more of the following dose reduction techniques were used: Automated exposure control, adjus tment of the mA and kV according to patient size, and iterative reconstruction. Unless otherwise specified, incidental findings do not require dedicated imaging follow-up. FINDINGS: No evidence of hydrocephalus, intracranial hemorrhage, or extra-axial fluid collection. Encephalomalacia along the right frontoparietal region suggesting sequelae of remote ischemia. Focus of near CSF density in the right basal ganglia region anteriorly, favored to represent a remote lacunar infarct, however is ultimately of indeterminate age. Mild brain atrophy otherwise, with mild periventricular and deep white matter chronic microvascular ischemic changes present. The calvarium is intact. The visualized paranasal sinuses and mastoid air cells are essentially clear . IMPRESSION: No evidence of acute intracranial abnormality. Findings suggesting sequelae of remote ischemia as above. If there is concern for acute ischemia, add itional evaluation by MRI would be more helpful. THIS REPORT CONTAINS FINDINGS THAT MAY BE CRITICAL TO PATIENT CARE. The findings were verbally commun icated via telephone to Dick Velasco MD on 09/15/2024 11:03 AM.
[2024-09-15 11:10] LABS: Hematocrit 45.9 % (36.0-45.0); Hemoglobin 15.9 g/dL (12.0-15.0); MCH 28.9 pg (27.0-35.0); MCHC 34.7 g/dL (32.0-36.0); MCV 83.2 fL (80-100); MPV 8.2 fL (7.6-11.3); Neutrophils % 67.5 % (41.7-73.7); Platelets 263 thou/uL (152-406); RBC Red Blood Cell Count 5.51 M/uL (3.86-4.86); Red Cell Distribution Width 13.5 % (12.1-15.2)
[2024-09-15 11:11] LABS: Absolute Basophils 0.1 K/uL (0-0.5); Absolute Eosinophils 0.3 K/uL (0-0.5); Absolute Lymphocytes (CBC) 1.4 K/uL (0.7-4.9); Absolute Monocytes 0.4 K/uL (0.1-1.3); Absolute Neutrophil 4.5 K/uL (1.8-8.0); Basophils % 0.8 % (0-1.3); Eosinophils % 4.1 % (0-4.4); Monocytes % 6.6 % (3.3-12.3); Nucleated Red Blood Cells % 0.1 % (0-0)
[2024-09-15] MEDS ORDERED: TENECTEPLASE 50 MG/10 ML VIAL IV ONE (11:11)
[2024-09-15 11:16] LABS: PT Prothrombin Time 11.2 SECONDS (10-13.0); Protime INR 0.98
--- NOTE | 2024-09-15 11:22 | EDPHYS ---
Physician Documentation [facility] Name: Evelyne Zafar Age: 43 yrs Sex: Female : 1980 Arrival Date: 09/15/2024 Time: 10:43 Bed 3 Private MD: ED Physician Dick Velasco HPI: 09/15 11:10 This 43 yrs old Female presents to ER via Ambulatory with complaints of philip Slurred Speech, Headache, Blurred Vision. 11:10 The patient presents to the emergency department with a speech or higher order brain philip function problem, aphasia, that is mild, that is moderate. Onset: The symptoms/episode began/occurred at 09:00. Context: occurred uatsdin. Associated signs and symptoms: Pertinent positives: dizziness, headache, weakness. Severity of symptoms: At their worst the symptoms were moderate in the emergency department the symptoms are unchanged. Patient's baseline: Neuro: alert and fully oriented. Current symptoms: dysphasia. The patient has experienced similar episodes in the past, several times. Historical: - Allergies: 11:08 medroxyprogesterone; hb - PMHx: 11:08 Anemia; diabetes mellitus; Hypertensive disorder; Thyroid problem; hb - PSHx: 11:08 Cholecystectomy; hb - Immunization history:: Adult Immunizations up to date. - Infectious Disease History:: Denies. - Social history:: Smoking status: Patient denies any tobacco usage or history of. - Family history:: not pertinent. ROS: 11:10 Constitutional: Negative for fever, chills, and weight loss, Eyes: Negative for injury, philip pain, redness, and discharge, ENT: Negative for injury, pain, and discharge, Neck: Negative for injury, pain, and swelling, Cardiovascular: Negative for chest pain, palpitations, and edema, Respiratory: Negative for shortness of breath, cough, wheezing, and pleuritic chest pain, Abdomen/GI: Negative for abdominal pain, nausea, vomiting, diarrhea, and constipation, Back: Negative for injury and pain, : Negative for injury, bleeding, discharge, and swelling, MS/Extremity: Negative for injury and deformity, Skin: Negative for injury, rash, and discoloration, Psych: Negative for depression, anxiety, suicide ideation, homicidal ideation, and hallucinations, Allergy/Immunology: Negative for hives, rash, and allergies, Endocrine: Negative for neck swelling, polydipsia, polyuria, polyphagia, and marked weight changes, Hematologic/Lymphatic: Negative for swollen nodes, abnormal bleeding, and unusual bruising, 11:10 Neuro: Positive for dizziness, speech changes, Exam: 11:10 Constitutional: This is a well developed, well nourished patient who is awake, alert, philip and in no acute distress. Head/Face: Normocephalic, atraumatic. Eyes: Pupils equal round and reactive to light, extra-ocular motions intact. Lids and lashes normal. Conjunctiva and sclera are non-icteric and not injected. Cornea within normal limits. Periorbital areas with no swelling, redness, or edema. ENT: Nares patent. No nasal discharge, no septal abnormalities noted. Tympanic membranes are normal and external auditory canals are clear. Oropharynx with no redness, swelling, or masses, exudates, or evidence of obstruction, uvula midline. Mucous membranes moist. Neck: Trachea midline, no thyromegaly or masses palpated, and no cervical lymphadenopathy. Supple, full range of motion without nuchal rigidity, or vertebral point tenderness. No Meningismus. Chest/axilla: Normal chest wall appearance and motion. Nontender with no deformity. No lesions are appreciated. Cardiovascular: Regular rate and rhythm with a normal S1 and S2. No gallops, murmurs, or rubs. Normal PMI, no JVD. No pulse deficits. Respiratory: Lungs have equal breath sounds bilaterally, clear to auscultation and percussion. No rales, rhonchi or wheezes noted. No increased work of breathing, no retractions or nasal flaring. Abdomen/GI: Soft, non-tender, with normal bowel sounds. No distension or tympany. No guarding or rebound. No evidence of tenderness throughout. Back: No spinal tenderness. No costovertebral tenderness. Full range of motion. Skin: Warm, dry with normal turgor. Normal color with no rashes, no lesions, and no evidence of cellulitis. MS/ Extremity: Pulses equal, no cyanosis. Neurovascular intact. Full, normal range of motion., bilateral aka Psych: Awake, alert, with orientation to person, place and time. Behavior, mood, and affect are within normal limits. 11:10 ECG was reviewed by the Attending Physician. 11:39 Neuro: Orientation: is normal, appropriate for stated age, no acute changes, Mentation: philip is normal, appropriate for stated age, no acute changes, Memory: is normal, appropriate for stated age, no acute changes, Cranial nerves: grossly normal, is grossly normal based on the patient's age, no acute changes, Cerebellar function: is grossly normal, is grossly normal based on the patient's age, no acute changes, Motor: moves all fours, Gait: not tested. seizure activity, is not displayed by the patient, Vital Signs: 10:47 Pain 8/10; hb 11:09 Weight 64.86 kg; hb 11:10 Weight 64.86 kg; ld1 11:17 BP 139 / 85; Pulse 104; Resp 18; Temp 97.2(TE); Pulse Ox 98% on R/A; Height 5 ft. 2 in. ld1 ; Pain 0/10; 11:45 BP 125 / 87; Pulse 98; Resp 18; Pulse Ox 100% on R/A; ld1 12:00 BP 115 / 78; Pulse 89; Resp 18; Pulse Ox 100% on R/A; ld1 12:15 BP 117 / 82; Pulse 87; Resp 18; Pulse Ox 100% on R/A; ld1 12:28 BP 128 / 84; Pulse 99; Resp 18; Pulse Ox 99% on R/A; ld1 12:30 BP 115 / 74; Pulse 84; Resp 18; Pulse Ox 100% on R/A; ld1 12:45 BP 129 / 93; Pulse 79; Resp 18; Pulse Ox 100% on R/A; ld1 10:47 Pain Scale: Adult hb 11:17 Pain Scale: Adult ld1 NIH Stroke Scale Scores: 11:12 NIHSS Score: 3 ld1 11:39 NIHSS Score: 2 philip 12:49 NIHSS Score: 3 ld1 MDM: 10:47 Medical Screening Exam initiated philip 11:19 Data reviewed: vital signs, nurses notes, EMS record, lab test result(s), EKG, philip radiologic studies, CT scan, plain films. Consideration of Admission/Observation Escalation of care including admission/observation considered. I considered the following discharge prescriptions or medication management in the emergency department Medications were administered in the Emergency Department. See MAR. Independent interpretation of the following test(s) in the Emergency Department EKG: See my EKG interpretation above. Test considered but Not performed: MRI: no mri. Historians other than the Patient: EMS: ems well informed. Care significantly affected by the following chronic conditions: Diabetes, Hypertension. Counseling: I had a detailed discussion with the patient and/or guardian regarding the historical points, exam findings, and any diagnostic results supporting the discharge/admit diagnosis, lab results, radiology results, the need for outpatient follow up, for definitive care, 09/15 10:49 Order name: Basic Metabolic Panel; Complete Time: 12:08 [facility] 09/15 10:49 Order name: CBC with Diff; Complete Time: 12:08 [facility] 09/15 10:49 Order name: LFT's; Complete Time: 12:08 [facility] 09/15 10:49 Order name: Magnesium; Complete Time: 12:08 [facility] 09/15 10:49 Order name: NT PRO-BNP; Complete Time: 12:08 [facility] 09/15 10:49 Order name: PT-INR; Complete Time: 12:08 [facility] 09/15 10:49 Order name: Troponin HS; Complete Time: 12:08 [facility] 09/15 10:49 Order name: CRP; Complete Time: 12:08 [facility] 09/15 11:14 Order name: Glucose, Ancillary Testing; Complete Time: 12:08 [facility] 09/15 10:49 Order name: XRAY Chest (1 view) [facility] 09/15 10:49 Order name: CT Stroke Brain w/o Contrast; Complete Time: 11:09 [facility] 09/15 10:49 Order name: CT Head Angio [facility] 09/15 10:49 Order name: CT Neck Angio [facility] 09/15 10:49 Order name: Cardiac monitoring; Complete Time: 11:10 [facility] 09/15 10:49 Order name: EKG - Nurse/Tech; Complete Time: 11:10 [facility] 09/15 10:49 Order name: IV Saline Lock; Complete Time: 11:10 [facility] 09/15 10:49 Order name: Labs collected and sent; Complete Time: 11:10 [facility] 09/15 10:49 Order name: O2 Per Protocol; Complete Time: 10:56 [facility] 09/15 10:49 Order name: O2 Sat Monitoring; Complete Time: 10:56 [facility] EC:10 Rate is 91 beats/min. QRS Paola is Normal. AR interval is normal. QRS interval is philip normal. QT interval is normal. No Q waves. T waves are Normal. Clinical impression: NSR w/ Non-specific ST/T Changes and No evidence of ischemia. Administered Medications: 11:20 Drug: foLIC Acid IVPB 1 mg IVPB once Route: IVPB; Site: right antecubital; ld1 11:22 Drug: NS 0.9% IV 1000 ml IV at 1000 ml once; to be given as a bolus over 60 minutes ld1 Route: IV; Rate: 1000 ml; Site: right antecubital; 11:23 Drug: Ondansetron IVP 8 mg IVP once; over 2 minutes Route: IVP; Site: right antecubital;ld1 11:29 Drug: TNK FOR STROKE - Tenecteplase IV (Administer 10 ml NS flush BEFORE and ld1 AFTER tenecteplase) 16 mg IV at per protocol once; 0.25mg/kg, MAX DOSE 25 mg, IVP over 5 seconds {Co-Signature: hb (Kailyn Delatorre RN).} Route: IV; Rate: per protocol; Site: right antecubital; Point of Care Testing: Blood Glucose: 11:15 Blood Glucose: 178 mg/dL; ld1 Ranges: Critical Glucose Levels:Adult <50 mg/dl or >400 mg/dl <40 mg/dl or >180 mg/dl Disposition Summary: 09/15/24 11:22 Transfer Ordered Notes: Transfer Location: [facility] philip Reason: Higher level of care philip Condition: Serious philip Problem: new philip Symptoms: have improved philip Accepting Physician: to neuro icu(09/15/24 12:49) ld1 Diagnosis - Cerebral infarction, unspecified philip - Dysphasia and aphasia philip Forms: - Medication Reconciliation Form philip - SBAR form philip NIH Stroke Scale - NIH Stroke Score Date: 09/15/2024 Time: 11:12 Total Score = 3 10. Dysarthria (speech clarity - read or repeat words) - 1(Mild to Moderate) 11. Extinction and Inattention (visual/tactile/auditory/spatial/personal) - 0(No abnormality) 1a. Level of Consciousness (LOC) - 0(Alert) 1b. Level of Consciousness (LOC) (Month \T\ Age) - 0(Both) 1c. LOC Commands (Open \T\ Closes Eyes/Sales Service Technician) - 0(Both) 2. Best Gaze (Lateral Gaze Paresis) - 0(Normal) 3. Visual Field Loss - 0(No visual loss) 4. Facial Palsy - 1(Minor Paralysis) 5a. Left Arm: Motor (10-second hold) - 0(No drift) 5b. Right Arm: Motor (10-second hold) - 0(No drift) 6a. Left Leg: Motor (5-second hold - always test supine) - 0(No drift) 6b. Right Leg: Motor (5-second hold - always test supine) - 0(No drift) 7. Limb Ataxia (finger/nose \T\ heel/bullock - test with eyes open) - 0(Absent) 8. Sensory Loss (pinprick arms/legs/face) - 0(Normal) 9. Best Language: Aphasia (description/naming/reading) - 1(Mild to moderate aphasia) Initials: ld1 NIH Stroke Scale - NIH Stroke Score Date: 09/15/2024 Time: 11:39 Total Score = 2 10. Dysarthria (speech clarity - read or repeat words) - 1(Mild to Moderate) 11. Extinction and Inattention (visual/tactile/auditory/spatial/personal) - 0(No abnormality) 1a. Level of Consciousness (LOC) - 0(Alert) 1b. Level of Consciousness (LOC) (Month \T\ Age) - 0(Both) 1c. LOC Commands (Open \T\ Closes Eyes/Sales Service Technician) - 0(Both) 2. Best Gaze (Lateral Gaze Paresis) - 0(Normal) 3. Visual Field Loss - 0(No visual loss) 4. Facial Palsy - 0(Normal) 5a. Left Arm: Motor (10-second hold) - 0(No drift) 5b. Right Arm: Motor (10-second hold) - 0(No drift) 6a. Left Leg: Motor (5-second hold - always test supine) - 0(No drift) 6b. Right Leg: Motor (5-second hold - always test supine) - 0(No drift) 7. Limb Ataxia (finger/nose \T\ heel/bullock - test with eyes open) - 0(Absent) 8. Sensory Loss (pinprick arms/legs/face) - 0(Normal) 9. Best Language: Aphasia (description/naming/reading) - 1(Mild to moderate aphasia) Initials: philip NIH Stroke Scale - NIH Stroke Score Date: 09/15/2024 Time: 12:49 Total Score = 3 10. Dysarthria (speech clarity - read or repeat words) - 1(Mild to Moderate) 11. Extinction and Inattention (visual/tactile/auditory/spatial/personal) - 0(No abnormality) 1a. Level of Consciousness (LOC) - 0(Alert) 1b. Level of Consciousness (LOC) (Month \T\ Age) - 0(Both) 1c. LOC Commands (Open \T\ Closes Eyes/Sales Service Technician) - 0(Both) 2. Best Gaze (Lateral Gaze Paresis) - 0(Normal) 3. Visual Field Loss - 0(No visual loss) 4. Facial Palsy - 1(Minor Paralysis) 5a. Left Arm: Motor (10-second hold) - 0(No drift) 5b. Right Arm: Motor (10-second hold) - 0(No drift) 6a. Left Leg: Motor (5-second hold - always test supine) - 0(No drift) 6b. Right Leg: Motor (5-second hold - always test supine) - 0(No drift) 7. Limb Ataxia (finger/nose \T\ heel/bullock - test with eyes open) - 0(Absent) 8. Sensory Loss (pinprick arms/legs/face) - 0(Normal) 9. Best Language: Aphasia (description/naming/reading) - 1(Mild to moderate aphasia) Initials: ld1 Signatures: Dispatcher [employer] EDDick Beck MD MD cha Baxter, Heather, RN RN Janelle Ashby RN RN 1 Kailyn Delatorre RN Corrections: (The following items were deleted from the chart) 10:49 10:49 BASIC METABOLIC PANEL+C.LAB.BRZ ordered. EDMS EDMS 10:49 10:49 CBC+H.LAB.BRZ ordered. EDMS EDMS 10:49 10:49 HEPATIC FUNCTION+C.LAB.BRZ ordered. EDMS EDMS 10:49 10:49 MAGNESIUM+C.LAB.BRZ ordered. EDMS EDMS 10:49 10:49 PROBNP+C.LAB.BRZ ordered. EDMS EDMS 10:49 10:49 PROTIME (+INR)+COAG.LAB.BRZ ordered. EDMS EDMS 10:49 10:49 Troponin High Sensitivity+C.LAB.BRZ ordered. EDMS EDMS 10:49 10:49 C-REACTIVE PROTEIN+C.LAB.BRZ ordered. EDMS EDMS 10: 10:49 UA Rfx Romero Cult if indicated+U.LAB.BRZ ordered. EDMS EDMS 10: 10:49 Chest Single View+RAD.RAD.BRZ ordered. EDMS EDMS 10: 10:49 CT-STROKE BRAIN W/O CONTRAST+CT.RAD.BRZ ordered. EDMS EDMS 10:49 10:49 Head Angio+CT.RAD.BRZ ordered. EDMS EDMS 10:50 10:50 Neck Angio+CT.RAD.BRZ ordered. EDMS EDMS 12:49 11:22 to neuro icu philip ld1
--- NOTE | 2024-09-15 11:22 | ER ---
Nurse's Notes [facility] Name: Evelyne Zafar Age: 43 yrs Sex: Female : 1980 Arrival Date: 09/15/2024 Time: 10:43 Bed 3 Private MD: Diagnosis: Cerebral infarction, unspecified;Dysphasia and aphasia Presentation: 09/15 10:47 Chief complaint: Headache x 2 days, sudden onset blurred vision and difficulty speaking hb that started at 0900 today. Coronavirus screen: At this time, the client does not indicate any symptoms associated with coronavirus-19. Ebola Screen: No symptoms or risks identified at this time. An acute neurological deficit is present. The charge nurse has been notified. The patient has been moved to a treatment area. Initial Sepsis Screen: Does the patient meet any 2 criteria? No. Patient's initial sepsis screen is negative. Does the patient have a suspected source of infection? No. Patient's initial sepsis screen is negative. Risk Assessment: Do you want to hurt yourself or someone else? Patient reports no desire to harm self or others. Onset of symptoms was September 15, 2024 at 09:00. 10:47 Method Of Arrival: Ambulatory hb 10:47 Acuity: SHERIF 2 hb 11:13 The patients blood glucose was checked before arriving to the hospital and was found to ld1 be normal. Triage Assessment: 11:13 The onset of the patients symptoms was September 15, 2024 at 09:00. General: Appears in no ld1 apparent distress. comfortable, Behavior is calm, cooperative, appropriate for age. Pain: Denies pain. EENT: No signs and/or symptoms were reported regarding the EENT system. Neuro: Level of Consciousness is awake, alert, obeys commands, Oriented to person, place, time, situation, Reports blurred vision since 0900. Neuro: Guide Travel are equal bilaterally Moves all extremities. Gait is steady, Speech is slurred, with expressive aphasia noted, Facial droop on left, Pupils are PERRLA, Intact. Cardiovascular: Capillary refill < 3 seconds Patient's skin is warm and dry. Respiratory: Airway is patent Respiratory effort is even, unlabored. GI: Abdomen is round non-distended. : No signs and/or symptoms were reported regarding the genitourinary system. Derm: No signs and/or symptoms reported regarding the dermatologic system. Musculoskeletal: No signs and/or symptoms reported regarding the musculoskeletal system. Stroke Activation: Physician: ED Attending; Name: Dr. Velasco; Notified At: 10:47; Arrived At: 11:05 Physician: Mid-Level Provider; Name: ; Notified At: 10:47; Arrived At: Physician: [not used]; Name: ; Notified At: ; Arrived At: Physician: [not used]; Name: ; Notified At: ; Arrived At: Physician: [not used]; Name: ; Notified At: ; Arrived At: Historical: - Allergies: 11:08 medroxyprogesterone; hb - PMHx: 11:08 Anemia; diabetes mellitus; Hypertensive disorder; Thyroid problem; hb - PSHx: 11:08 Cholecystectomy; hb - Immunization history:: Adult Immunizations up to date. - Infectious Disease History:: Denies. - Social history:: Smoking status: Patient denies any tobacco usage or history of. - Family history:: not pertinent. Screenin:15 [facility] ED Fall Risk Assessment (Adult) History of falling in the last 3 months, ld1 including since admission No falls in past 3 months (0 pts) Confusion or Disorientation No (0 pts) Intoxicated or Sedated No (0 pts) Impaired Gait No (0 pts) Mobility Assist Device Used No (0 pt) Altered Elimination No (0 pt) Score/Fall Risk Level 0 - 2 = Low Risk Oriented to surroundings, Hourly rounding (assess needs \T\ fall precautionary measures) done. Abuse screen: Denies threats or abuse. Denies injuries from another. Nutritional screening: No deficits noted. Tuberculosis screening: No symptoms or risk factors identified. Assessment: 10:47 Reassessment: Code stroke called, pt to CT with Kailyn YOU. hb 11:05 Reassessment: Blood specimen sent to lab, outside lab notified. hb 11:12 VAN Scoring: Arm Drift: Patients demonstrates NO arm weakness. Patient is VAN Negative. ld1 Aphasia: Expressive aphasia noted. Provider notified of +VAN scoring. Vicky Swallow Protocol Exclusion Criteria: Brief Cognitive Screen What is your name? Normal, Where are you right now? Normal, What year is it? Normal. Oral Mechanism Examination Facial Symmetry: Normal, Motion: Normal, Lip Closure: Normal, 3 oz Water Swallow Challenge: Pt able to drink all water without stopping, coughing, choking or throat clearing: Yes Result: BEAU BROOKS Notified: Dick Velasco MD. TNKase (Tenecteplase) Screening: Indications: Treatment will start within 4.5 hours onset of symptoms: Yes. 11:30 Reassessment: Patient appears in no apparent distress at this time. No changes from ld1 previously documented assessment. 12:00 Reassessment: Patient appears in no apparent distress at this time. No changes from ld1 previously documented assessment. Patient is alert, oriented x 3, equal unlabored respirations, skin warm/dry/pink. 12:30 Reassessment: Patient appears in no apparent distress at this time. No changes from ld1 previously documented assessment. Vital Signs: 10:47 Pain 8/10; hb 11:09 Weight 64.86 kg; hb 11:10 Weight 64.86 kg; ld1 11:17 BP 139 / 85; Pulse 104; Resp 18; Temp 97.2(TE); Pulse Ox 98% on R/A; Height 5 ft. 2 in. ld1 ; Pain 0/10; 11:45 BP 125 / 87; Pulse 98; Resp 18; Pulse Ox 100% on R/A; ld1 12:00 BP 115 / 78; Pulse 89; Resp 18; Pulse Ox 100% on R/A; ld1 12:15 BP 117 / 82; Pulse 87; Resp 18; Pulse Ox 100% on R/A; ld1 12:28 BP 128 / 84; Pulse 99; Resp 18; Pulse Ox 99% on R/A; ld1 12:30 BP 115 / 74; Pulse 84; Resp 18; Pulse Ox 100% on R/A; ld1 12:45 BP 129 / 93; Pulse 79; Resp 18; Pulse Ox 100% on R/A; ld1 10:47 Pain Scale: Adult hb 11:17 Pain Scale: Adult ld1 NIH Stroke Scale Scores: 11:12 NIHSS Score: 3 ld1 11:39 NIHSS Score: 2 philip 12:49 NIHSS Score: 3 ld1 ED Course: 10:47 Patient arrived in ED. im 10:47 Dick Velasco MD is Attending Physician. philip 10:55 Keith Ortega, RN is Primary Nurse. bp 10:58 CT Stroke Brain w/o Contrast In Process Unspecified. EDMS 11:05 Initial lab(s) drawn, by me, sent to lab. Inserted saline lock: 20 gauge in right hb antecubital area, using aseptic technique. Blood collected. Flushed with 10 mL NS. 11:08 Triage completed. hb 11:10 Arm band placed on. hb 11:[address] Velasco called [facility] for transfer talked to Alina. 1156 Dr. Mikki Pack sp accepted pt to [facility]. Admin approval by Alina Cadena. report [phone] bed [id number] fax [phone] called [facility] for transfer talked to [facility]. 11:15 No provider procedures requiring assistance completed. ld1 11:15 Patient has correct armband on for positive identification. Placed in gown. Bed in low ld1 position. Call light in reach. Side rails up X2. cardiac monitor technician on. Pulse ox on. NIBP on. Door closed. Noise minimized. Warm blanket given. 11:19 XRAY Chest (1 view) In Process Unspecified. EDMS 11:22 CT Head Angio In Process Unspecified. EDMS 11:22 CT Neck Angio In Process Unspecified. EDMS 12:49 Patient transferred, IV remains in place. ld1 Administered Medications: 11:20 Drug: foLIC Acid IVPB 1 mg IVPB once Route: IVPB; Site: right antecubital; ld1 11:22 Drug: NS 0.9% IV 1000 ml IV at 1000 ml once; to be given as a bolus over 60 minutes ld1 Route: IV; Rate: 1000 ml; Site: right antecubital; 11:23 Drug: Ondansetron IVP 8 mg IVP once; over 2 minutes Route: IVP; Site: right antecubital;ld1 11:29 Drug: TNK FOR STROKE - Tenecteplase IV (Administer 10 ml NS flush BEFORE and ld1 AFTER tenecteplase) 16 mg IV at per protocol once; 0.25mg/kg, MAX DOSE 25 mg, IVP over 5 seconds {Co-Signature: olivia (Kailyn Delatorre RN).} Route: IV; Rate: per protocol; Site: right antecubital; Medication: 11:15 VIS not applicable for this client. ld1 Point of Care Testing: Blood Glucose: 11:15 Blood Glucose: 178 mg/dL; ld1 Ranges: Outcome: 11:22 ER care complete, transfer ordered by MD. palacios 12:49 Patient left the ED. ld1 12:49 Transferred by ground EMS ld1 12:49 Condition: stable 12:49 Instructed on the need for transfer, NIH Stroke Scale - NIH Stroke Score Date: 09/15/2024 Time: 11:12 Total Score = 3 10. Dysarthria (speech clarity - read or repeat words) - 1(Mild to Moderate) 11. Extinction and Inattention (visual/tactile/auditory/spatial/personal) - 0(No abnormality) 1a. Level of Consciousness (LOC) - 0(Alert) 1b. Level of Consciousness (LOC) (Month \T\ Age) - 0(Both) 1c. LOC Commands (Open \T\ Closes Eyes/Cloth Shrinker) - 0(Both) 2. Best Gaze (Lateral Gaze Paresis) - 0(Normal) 3. Visual Field Loss - 0(No visual loss) 4. Facial Palsy - 1(Minor Paralysis) 5a. Left Arm: Motor (10-second hold) - 0(No drift) 5b. Right Arm: Motor (10-second hold) - 0(No drift) 6a. Left Leg: Motor (5-second hold - always test supine) - 0(No drift) 6b. Right Leg: Motor (5-second hold - always test supine) - 0(No drift) 7. Limb Ataxia (finger/nose \T\ heel/bullock - test with eyes open) - 0(Absent) 8. Sensory Loss (pinprick arms/legs/face) - 0(Normal) 9. Best Language: Aphasia (description/naming/reading) - 1(Mild to moderate aphasia) Initials: ld1 NIH Stroke Scale - NIH Stroke Score Date: 09/15/2024 Time: 11:39 Total Score = 2 10. Dysarthria (speech clarity - read or repeat words) - 1(Mild to Moderate) 11. Extinction and Inattention (visual/tactile/auditory/spatial/personal) - 0(No abnormality) 1a. Level of Consciousness (LOC) - 0(Alert) 1b. Level of Consciousness (LOC) (Month \T\ Age) - 0(Both) 1c. LOC Commands (Open \T\ Closes Eyes/Cloth Shrinker) - 0(Both) 2. Best Gaze (Lateral Gaze Paresis) - 0(Normal) 3. Visual Field Loss - 0(No visual loss) 4. Facial Palsy - 0(Normal) 5a. Left Arm: Motor (10-second hold) - 0(No drift) 5b. Right Arm: Motor (10-second hold) - 0(No drift) 6a. Left Leg: Motor (5-second hold - always test supine) - 0(No drift) 6b. Right Leg: Motor (5-second hold - always test supine) - 0(No drift) 7. Limb Ataxia (finger/nose \T\ heel/bullock - test with eyes open) - 0(Absent) 8. Sensory Loss (pinprick arms/legs/face) - 0(Normal) 9. Best Language: Aphasia (description/naming/reading) - 1(Mild to moderate aphasia) Initials: philip NIH Stroke Scale - NIH Stroke Score Date: 09/15/2024 Time: 12:49 Total Score = 3 10. Dysarthria (speech clarity - read or repeat words) - 1(Mild to Moderate) 11. Extinction and Inattention (visual/tactile/auditory/spatial/personal) - 0(No abnormality) 1a. Level of Consciousness (LOC) - 0(Alert) 1b. Level of Consciousness (LOC) (Month \T\ Age) - 0(Both) 1c. LOC Commands (Open \T\ Closes Eyes/Cloth Shrinker) - 0(Both) 2. Best Gaze (Lateral Gaze Paresis) - 0(Normal) 3. Visual Field Loss - 0(No visual loss) 4. Facial Palsy - 1(Minor Paralysis) 5a. Left Arm: Motor (10-second hold) - 0(No drift) 5b. Right Arm: Motor (10-second hold) - 0(No drift) 6a. Left Leg: Motor (5-second hold - always test supine) - 0(No drift) 6b. Right Leg: Motor (5-second hold - always test supine) - 0(No drift) 7. Limb Ataxia (finger/nose \T\ heel/bullock - test with eyes open) - 0(Absent) 8. Sensory Loss (pinprick arms/legs/face) - 0(Normal) 9. Best Language: Aphasia (description/naming/reading) - 1(Mild to moderate aphasia) Initials: ld1 Signatures: Dispatcher [employer] Dick Hudson MD MD cha Pinkerton, Shawna sp Baxter, Heather, AVELINO RN Keith Ortega RN RN Janelle Ashby RN RN ld1 Fartun Lipscomb Heather RN hb
[2024-09-15] MEDS ORDERED: ONDANSETRON 4 MG/2 ML VIAL ONE (11:23)
[2024-09-15] MEDS ORDERED: FOLIC ACID 5 MG/ML VIAL ONE (11:24)
[2024-09-15] MEDS ORDERED: NA CHLORIDE 0.9% 1,000 ML ONE (11:25)
[2024-09-15 11:29] LABS: ALT/SGPT 22 U/L (13-56); Albumin 3.7 g/dL (3.4-5.0); Albumin/Globulin Ratio 0.9 (1.1-1.8); Alkaline Phosphatase 119 U/L (45-117); Anion Gap 10.2 mEq/L (5.0-15.0); BUN Blood Urea Nitrogen 21 mg/dL (7-18); Bicarbonate 28 mEq/L (21-32); Bilirubin Direct 0.2 mg/dL (0-0.2); Bilirubin Indirect, Calculated 0.6 mg/dL (0.2-0.8); Bilirubin Total 0.8 mg/dL (0.2-1.0); Globulin 4.3 g/dL (2.3-3.5); Glomerular Filtration Rate 89 ml/min (=/>90); Glucose Level 167 mg/dL (74-106); Magnesium 2.4 mg/dL (1.6-2.4); NT PRO-BNP 54 pg/mL (<125); Potassium 3.2 mEq/L (3.5-5.1); Sodium Level 139 mEq/L (136-145); Troponin High Sensitivity 3.9 pg/mL (<58.9)
[2024-09-15 11:31] LABS: AST/SGOT < 10 U/L (15-37)
--- NOTE | 2024-09-15 12:09 | RAD REPORT ---
EXAMINATION: CTA HEAD CLINICAL INDICATION: Female, 43 years old. TIA TECHNIQUE: Axial CT images were obtained through the head after intravenous contrast utilizing angiog raphic protocol with 3D post-processing (maximum intensity projection images, volume rendered images and/or shaded surface rendered images). One or more of the following dose reduction technique s were used: Automated exposure control, adjustment of the mA and/or kV according to patient size, and/or iterative reconstruction. Unless otherwise specified, incidental findings do not require dedic ated imaging follow-up. COMPARISON: No prior exam. FINDINGS: ICA: The petrous, cavernous, and supraclinoid segments of the bilateral internal carotid arteries are normal. GUERDA: Anterior cerebral arteries are normal bilaterally. The anterior communicating artery is patent. MCA: Middle cerebral arteries are patent bilaterally. Mild short segment narrowing proximal right MC A. RN ACUTE: Posterior cerebral arteries are patent bilaterally. Dominant left posterior communicating artery . Vertebrobasilar: The vertebral arteries are patent. The basilar artery is normal in appearance. 3D images confirm these findings. IMPRESSION: No large vessel occlusion. Mild short segment narrowing proximal right MCA.
--- NOTE | 2024-09-15 12:18 | RAD REPORT ---
EXAMINATION: CT Neck Angio CLINICAL INDICATION: Female, 43 years old. [facility] MAIN PAIN Bed Name: 3 TECHNIQUE: Axial CT images were obtained from the aortic arch to the skull base after intravenous con trast utilizing angiographic protocol. Multiplanar reformats, as well as 3D post-processing (maximum intensity projection images, volume rendered images and/or shaded surface rendered images) w ere generated and reviewed. One or more of the following dose reduction techniques were used: Automated exposure control, adjustment of the mA and/or kV according to patient size, and/or iterativ e reconstruction. Unless otherwise specified, incidental findings do not require dedicated imaging follow-up. COMPARISON: No prior exam. FINDINGS: AORTA: The imaged aortic arch is normal. Normal three-vessel configuration of the arch. CCA: No artifact The common carotid arteries are patent and normal in caliber. ICA/ECA: Bilateral internal and external carotid arteries are patent. Mild predominantly noncalcified atherosclerotic plaque at the bulbs, without significant internal carotid artery stenosis. VERTEBRAL: The cervical vertebral arteries are patent to the skull base. Vertebral arteries are codom inant. SOFT TISSUE: No significant neck soft tissue abnormalities. The visualized lung apices are clear. Het erogeneous bulky thyroid lobes, without a dominant nodule 3D images confirm these findings. IMPRESSION: No significant flow abnormality of the neck vessels is identified. Heterogeneous bulky thyroid lobes, without a dominant nodule, which can be further evaluated by dedic ated thyroid ultrasound if clinically indicated. NASCET criteria used to quantify ICA stenosis, with the following grading scheme: Mild 0-49% stenosis Moderate 50-69% stenosis Severe 70-99% stenosis Reference: [place] Symptomatic Carotid Endarterectomy Trial Collaborators; Micheal CARTER, Farrah ALAS, Lawson RB, et al. Beneficial effect of carotid endarterectomy in symptomatic patients with high-grade carotid stenosis. N Engl J Med. 1990Dec 06;325(7):445-53.
[2024-09-15 12:54] VITALS: BP 139/85; TEMP 97.2; O2SAT 98
--- NOTE | 2024-09-15 14:30 | RAD REPORT ---
EXAMINATION: ONE VIEW CHEST XR CLINICAL INDICATION: Female, 43 years old.,COUGH TECHNIQUE: Frontal chest projection is submitted. Examination is limited by patient positioning and t echnique. COMPARISON: No prior exam. FINDINGS: The lungs are well inflated and clear. No pneumothorax or sizable effusion. The heart is normal in s ize. Mediastinal contours are unremarkable. IMPRESSION: No acute intrathoracic abnormalities.
--- NOTE | 2024-09-17 12:23 | EKG ---
Test Date: 2024-09-15 Test Time: 11:03:21 Ur Coordinator: Roger RIGGS MEASUREMENT RESULTS: Intervals: Rate: 91 UT: 144 QRSD: 108 QT: 382 QTc: 469 [place]: P: 82 UT: 144 QRS: -57 T: 56 INTERPRETIVE STATEMENTS: Normal sinus rhythm Pulmonary disease pattern Incomplete right bundle branch block Left anterior fascicular block Possible Inferior infarct, age undetermined Abnormal ECG Compared to ECG 01/25/2024 08:12:00 Incomplete right bundle-branch block now present Left anterior fascicular block now present Myocardial infarct finding now present Left-axis deviation no longer present Electronically Signed On 09-17-24 12:19:43 CDT by Abhilash Pelaez
== END 2024-09-15 12:49 | disposition short-term general hospital (02) ==
LOC: ER 10:43
DX: I63.9 Cerebral infarction, unspecified (principal); R47.02 Dysphasia; R29.703 NIHSS score 3; I10 Essential (primary) hypertension
CPT/HCPCS: 92977; 93005; 85025; 80048; 36415; 83735; 85610; 82947; 80076; 84484; 83880; 86140; 70496; 70498; 70450; 71045; 96375; 96374; 99285; Q9967; J3101; J2405; J7030